=== PATIENT | female | born 1965 | race African-American/Black ===

== ENCOUNTER 2025-02-09 09:49 | Inpatient (IN) | payer MEDICAID, OTHER ==
[~2025-02-09] VITALS: Ht 180.3 cm; Wt 120.0 kg
[2025-02-09] VITALS (35 sets, daily range): BP systolic 147–205; BP diastolic 72–93; PULSE 75–126; RESP 9–19; TEMP 98.6–98.7; O2SAT 92–98
--- NOTE | 2025-02-09 10:27 | ED.PDOC ---
HPI Comments 59 y/o M, brought in by son presents to the ED for CC of hypertension. Per patient's son, patient began to become increasingly confusion and disoriented as of last night (02/09/24). Patient's son comments, symptoms worsened this morning with patient being unable to form sentences and speaking gibberish. Son endorses, checking patient's blood pressure prior to arrival and getting a hypertensive reading of 210/140mmHg. Per family, last known well is said to be 2200 last night (02/08/25). Upon arrival to the ED, code stroke called and patient transferred to ER bed 7 for further care. Time Seen by MD: 10:00 Primary Care Provider: DR CURRY Reviewed Notes: Nurses Notes, Medications, Allergies Allergies: Coded Allergies: NO KNOWN ALLERGIES (Unverified , 07/16/15) Information Source: Patient Mode of Arrival: Wheelchair Severity: Moderate Timing: Hours Duration: Since onset Prehospital treatment: None Onset: At Rest Cardiac Risk Factors: None PE Risk Factors: None History of: None Modifying Factors: Nothing Associated Signs and Symptoms: None Past Medical History PAST MEDICAL HISTORY: Denies Surgical History: Denies all surgeries OPTIMIZATION ENGINEER History: Denies all OPTIMIZATION ENGINEER Hx Family History Family History: Unknown Social History Smoker: Non-Smoker Alcohol: Denies ETOH Use Drugs: Denies Drug Use Lives In: Home All Other Systems: Reviewed and Negative ( PER HPI) Physical Exam General Appearance: Moderate Distress, Normal, Other (Tearful) HEENT: Normal ENT Inspection, Pharynx Normal Neck: Non-Tender, Normal, Normal Inspection, Other (Right-sided richie-neglect only looking to left side) Respiratory: Chest Non-Tender, Lungs Clear, No Accessory Muscle Use, No Respiratory Distress, Normal Breath Sounds Cardiovascular: No Edema, No Murmur, No Gallop, Normal Peripheral Pulses, Regular Rate/Rhythm Breast Exam: Deferred Gastrointestinal: No Organomegaly, Non Tender, No Pulsatile Mass, Normal Bowel Sounds, Soft Genitalia: Deferred Pelvic: Deferred Rectal: Deferred Extremities: No calf tenderness, Normal capillary refill, Normal inspection, Normal range of motion, Non-tender, No pedal edema Musculoskeletal : Apperance: Normal Neurologic: Alert, Aphasia, Other (Right-sided richie-neglect. Initially unable to follow commands. However symptoms waxing waning during examination. During examination she was able to at some point raise all extremities. Patient dysarthric. No facial droop no slurred speech.) Cerebellar Function: Normal Reflexes: Normal Skin: Dry, Normal Color, Warm Lymphatic: No Adenopathy EKG EKG : Comments SINUS RHYTHM RATE OF 80 WITH LEFT VENTRICULAR HYPERTROPHY. NO SIGNIFICANT ST CHANGES. Was a procedure done? Was a procedure done?: No CP Differential Dx Differential Diagnosis: Other (TIA/CVA) Differential Diagnosis: HTN Accelerated, HTN Encephalopathy X-Ray, Labs, Meds, VS Vital Signs Date Time Temp Pulse Resp B/P (MAP) Pulse Ox O2 Delivery O2 Flow Rate FiO2 02/09/25 14:01 80 11 193/88 (123) 96 02/09/25 13:48 204/100 02/09/25 12:01 76 11 189/95 (126) 95 02/09/25 11:22 76 15 187/78 (114) 96 02/09/25 10:54 75 14 97 Room Air* 0 21 02/09/25 10:52 97.9 79 13 212/101 (138) 96 97.9 02/09/25 10:37 80 02/09/25 09:51 97.9 83 16 194/121 (145) 98 97.9 Lab Test 02/09/25 13:17 02/09/25 11:18 02/09/25 10:25 02/09/25 10:09 Range/Units Troponin I High Sensitivity 9 8 9 </=34 ng/L White Blood Count 7.4 4.4-10.8 10^3/uL Red Blood Count 4.73 4.0-5.20 10^6/uL Hemoglobin 13.5 12.2-16.2 g/dL Hematocrit 40.3 36.0-46.0 % Mean Corpuscular Volume 85.1 80.0-100.0 fL Mean Corpuscular Hemoglobin 28.6 28.0-32.0 pg Mean Corpuscular Hemoglobin Concent 33.6 32.0-36.0 g/dL Red Cell Distribution Width 14.4 H 11.8-14.3 % Platelet Count 329 140-450 10^3/uL Mean Platelet Volume 7.7 6.9-10.8 fL Neutrophils (%) (Auto) 63.5 37.0-80.0 % Lymphocytes (%) (Auto) 28.5 10.0-50.0 % Monocytes (%) (Auto) 6.5 0.0-12.0 % Eosinophils (%) (Auto) 0.5 0.0-7.0 % Basophils (%) (Auto) 1.0 0.0-2.0 % Neutrophils # (Auto) 4.7 1.6-8.6 10 ^3/uL Lymphocytes # (Auto) 2.1 0.4-5.4 10 ^3/uL Monocytes # (Auto) 0.5 0-1.3 10 ^3/uL Eosinophils # (Auto) 0 0-0.8 10 ^3/uL Basophils # (Auto) 0.1 0-0.2 10 ^3/uL Nucleated Red Blood Cells 0.1 % Sodium Level 136 136-145 mmol/L Potassium Level 3.8 3.5-5.1 mmol/L Chloride Level 101 98-107 mmol/L Carbon Dioxide Level 29 20-31 mmol/L Anion Gap 6 5-15 Blood Urea Nitrogen 7 L 9-23 mg/dL Creatinine 0.79 0.550-1.02 mg/dL Glomerular Filtration Rate Calc 87 >90 mL/min BUN/Creatinine Ratio 8.9 L 10.0-20.0 Serum Glucose 291 H 74-106 mg/dL Hemoglobin A1c 13.7 H <5.7 % A1C Calcium Level 10.3 8.7-10.4 mg/dL Total Bilirubin 0.5 0.2-1.0 mg/dL Aspartate Amino Transferase (AST) 11 L 13-40 U/L Alanine Aminotransferase (ALT) 19 7-40 U/L Alkaline Phosphatase 120 H 46-116 U/L Total Protein 7.8 5.7-8.2 g/dL Albumin 4.6 3.2-4.8 g/dL Triglycerides Level 96 < 150 mg/dL Cholesterol Level 237 H < 200 mg/dL LDL Cholesterol 157 H < 100 mg/dL HDL Cholesterol 65 H 40-59 mg/dL POC Glucose 295 H 70-106 mg/dl Current Medications Medications (Trade) Dose Ordered Sig/Mai Route Start Time Stop Time Status Last Admin Ondansetron HCl (Zofran) 4 mg ONCE ONCE IV 02/09/25 10:45 02/09/25 10:46 DC 02/09/25 10:38 Hydralazine HCl (Apresoline Injection) 10 mg ONCE ONCE IV 02/09/25 13:45 02/09/25 13:46 DC 02/09/25 13:[address] [address] Ph: [phone] DIAGNOSTIC IMAGING Diagnostic Imaging Report : [id number] Signed PATIENT: HIRA GODOY ACCT: [id number] UNIT: [id number] : 1965 LOC: ER ROOM / BED: / AGE / SEX: 59 / F ADM STATUS: REG ER SERVICE 1014 ORDERING PHYSICIAN: SALUD MAJANO MD PROCEDURE(s): CTH - STROKE CTH REASON: CODE STROKE ORDER NUMBER(s): [id number], ACCESSION NUMBER(s): [id number] CT STROKE CTH INDICATION: CODE STROKE EXAM DATE: 02/09/2025 10:12 AM COMPARISON: None RADIATION DOSE: CTDIvol: 70.77 mGy, DLP: 1394.33 mGy*cm PROCEDURE: CT scans of the head were obtained from the vertex to the skull base. Sagittal and coronal reconstructions were provided. All CT scans at this medical facility are performed using dose modulation techniques as appropriate to a performed exam including the following: Automated exposure control was utilized; adjustment of the MA and/or KV according to patient size; and use of iterative reconstruction technique. FINDINGS: Hypodensity in the left parietal temporal lobe can be seen with an acute infarct. Old infarct in the left cerebellum. There is sulcal and ventricular prominence. The brain otherwise shows normal morphology and santos- white matter differentiation, without intracranial hemorrhage, extra-axial fluid collection, mass effect or acute large vessel infarct.The basal cisterns are patent. The skull and visible facial bones are intact. The paranasal sinuses, mastoid air cells and middle ear cavities are well-aerated. The soft tissues of the scalp are unremarkable. IMPRESSION: Hypodensity in the left parietal temporal lobe can be seen with an acute infarct. Old infarct in the left cerebellum and right basal ganglia. Critical Result: Infarct Findings discussed with Shine at 02/09/2025 10:39 AM and acknowledged receipt and understanding of the findings. ATED BY: RAYMOND MARMOLEJO MD DICTATED DATE/TIME: 02/09/251041 SIGNED BY: RAYMOND MARMOLEJO MD SIGNED DATE/TIME: 02/09/251041 CC: [place] [id number] Ph: [phone] DIAGNOSTIC IMAGING Diagnostic Imaging Report : [id number] Signed PATIENT: HIRA GODOY ACCT: [id number] UNIT: [id number] : 1965 LOC: ER ROOM / BED: / AGE / SEX: 59 / F ADM STATUS: REG ER SERVICE 1015 ORDERING PHYSICIAN: SALUD MAJANO MD PROCEDURE(s): CXR1 - CHEST XRAY 1 VIEW REASON: RO PNA ORDER NUMBER(s): [id number], ACCESSION NUMBER(s): [id number] CHEST RADIOGRAPH Indication: RO PNA Technique: Single frontal view of the chest was obtained Comparison: None FINDINGS: Lines and Tubes: None Lungs: No focal consolidation. Pleura: No effusion. No pneumothorax. Cardiomediastinal contours: Unremarkable Bones: No acute osseous abnormality. IMPRESSION: 1. No acute cardiopulmonary disease. ATED BY: JACKIE GODOY MD DICTATED DATE/TIME: 02/09/251041 SIGNED BY: JACKIE GODOY MD SIGNED DATE/TIME: 02/09/251041 CC: [place] [id number] Ph: [phone] DIAGNOSTIC IMAGING Diagnostic Imaging Report : [id number] Signed PATIENT: HIRA GODOY ACCT: [id number] UNIT: [id number] : 1965 LOC: ER ROOM / BED: / AGE / SEX: 59 / F ADM STATUS: REG ER SERVICE 1119 ORDERING PHYSICIAN: SALUD MAJANO MD PROCEDURE(s): [place] - ANGIO HEAD/Neck REASON: CVA ORDER NUMBER(s): [id number], ACCESSION NUMBER(s): [id number] Procedure: CT ANGIO HEAD/Neck HISTORY: CVA Comparison Study: CT head 02/09/2025 Exam Date:02/09/2025 11:25 AM TECHNIQUE: CTA head without and with intravenous contrast. CTA neck with intravenous contrast. 3D image postprocessing was performed and images were used for interpretation and reporting. 100 cc of Omnipaque 300 contrast was injected intravenously. All CT scans at this medical facility are performed using dose modulation techniques as appropriate to a performed exam including the following: Automated exposure control was utilized; adjustment of the MA and/or KV according to patient size; and use of iterative reconstruction technique. Radiation Dose : CT Dose: CTDI volume is 22 mGy. Dose-length product is 921 mGy*cm FINDINGS: CTA head: The intracranial internal carotid, anterior and middle cerebral arteries demonstrate normal caliber without hemodynamically significant stenosis or occlusion. The vertebral, basilar, and posterior cerebral arteries also demonstrate normal caliber without hemodynamically significant stenosis or occlusion. There is no evidence of intracranial arterial aneurysm or arteriovenous malformation. CTA neck: The visualized thoracic aortic arch and proximal great vessels are unremarkable. There are mild calcified atherosclerotic changes in the carotid bulbs. The bilateral common, internal and external carotid arteries are patent without hemodynamically significant stenosis. The cervical segments of the right and left vertebral arteries are patent without flow-limiting stenosis or obvious dissection.. There is no evidence of a soft tissue neck mass or pathologically enlarged cervical lymph nodes. There are thyroid nodules. IMPRESSION: 1. No hemodynamically significant stenosis, proximal occlusion or aneurysm in the intracranial arteries. 2. No hemodynamically significant stenosis in the cervical segments of the carotid and vertebral arteries. HS:Y ATED BY: WICHO PUENTES MD DICTATED DATE/TIME: 02/09/25 120 SIGNED BY: WICHO PUENTES MD SIGNED DATE/TIME: 02/09/25 120 CC: 59-year-old female presents here with confusion. Family initially brought her in as they noticed she was not speaking properly and noticed her blood pressure was high. I was immediately asked to see the patient by nursing staff. On my evaluation patient appear to have right-sided richie-neglect. She had dysarthria. Although she seemed to understand what I was telling her, she was not able to follow through with the commands. Her symptoms also seem to waxing and waning. As my initial assessment demonstrated right-sided richie-neglect but few minutes later during my conversation she was now able to see her right side and move extremities that she was not just a few minutes before. Stat CT scan of the brain was done on the patient. Which did demonstrate an acute temporal parietal ischemia. The findings were relayed to the neurologist Dr. Mercer. I spoke to her on the phone regarding patient's symptoms. She saw her on [facility]. She recommended a CT angio head and neck be performed stat to see if she would be a thrombectomy candidate. At this time CT angio head and neck does not demonstrate any embolism that would benefit from thrombectomy. Patient is not a tPA candidate as she is greater than the 4-1/2 hour window. She has a proximally 12 hours out from last seen normal. At this time blood work has been done which is largely unremarkable. She has been admitted to our hospital for further management of her acute stroke. Time of 1ST Reevaluation: 12:00 Reevaluation 1ST: Unchanged Patient Education/Counseling: Diagnosis, Treatment Family Education/Counseling: Diagnosis, Treatment Departure 1 Departure Time of Disposition: 15:11 Impression: Primary Impression: Acute stroke due to ischemia Disposition: ADMITTED INPATIENT Condition: Critical Critical Care Note Critical Care Time?: Yes (1 hr-critical care time only) Critical care comment: I was called into triage to see the patient immediately. Code stroke was called. Time was spent assessing the patient. Speak calling code strokes speaking to staff members. Speaking to a neurologist. Speaking to radiologist regarding initial CT results. Speaking here with neurologist multiple times and speaking to radiologist again about CT angio results. Concern for immediate neurological deterioration Stability Stability form required: No Heart Score Heart Score: Heart Score Response (Comments) Value History N/A 0 EKG N/A 0 Age N/A 0 Risk Factors N/A 0 Troponin N/A 0 Total 0 I personally scribed for SALUD MAJANO MD ([email or web address]) on 02/09/25 at 10:27. Electronically submitted by Leilani Ballesteros ([email or web address]). I personally scribed for SALUD MAJANO MD ([email or web address]) on 02/09/25 at 11:07. Electronically submitted by Leilani Ballesteros ([email or web address]). I personally scribed for SALUD MAJANO MD ([email or web address]) on 02/09/25 at 11:07. Electronically submitted by Leilani Ballesteros ([email or web address]). I personally scribed for SALUD MAJANO MD ([email or web address]) on 02/09/25 at 12:11. Electronically submitted by Leilani Ballesteros ([email or web address]). SALUD MAJANO MD Feb 09, 2025 10:27
[2025-02-09 10:37] LABS: Basophils # (auto) 0.1 10 ^3/uL (0-0.2); Eosinophils # (auto) 0 10 ^3/uL (0-0.8); Eosinophils % (auto) 0.5 % (0.0-7.0); Hematocrit 40.3 % (36.0-46.0); Hemoglobin 13.5 g/dL (12.2-16.2); Lymphocytes # (auto) 2.1 10 ^3/uL (0.4-5.4); Lymphocytes % (auto) 28.5 % (10.0-50.0); Mean Corpuscular Hemoglobin 28.6 pg (28.0-32.0); Mean Corpuscular Hgb Conc. 33.6 g/dL (32.0-36.0); Mean Corpuscular Volume 85.1 fL (80.0-100.0); Monocytes # (auto) 0.5 10 ^3/uL (0-1.3); Monocytes % (auto) 6.5 % (0.0-12.0); Neutrophils # (auto) 4.7 10 ^3/uL (1.6-8.6); Neutrophils % (auto) 63.5 % (37.0-80.0); Nucleated Red Blood Cells % 0.1 %; Platelet Count (auto) 329 10^3/uL (140-450); Red Blood Cells 4.73 10^6/uL (4.0-5.20); Red Cell Distribution Width 14.4 % (11.8-14.3); White Blood Cell 7.4 10^3/uL (4.4-10.8)
[2025-02-09] MEDS: ONDANSETRON HCL 4 MG/2 ML VIAL IV ONE (10:38)
[2025-02-09] MEDS: ONDANSETRON HCL 4 MG/2 ML VIAL ONE (10:39)
--- NOTE | 2025-02-09 10:44 | DVH ---
CT STROKE CTH INDICATION: CODE STROKE EXAM DATE: 02/09/2025 10:12 AM COMPARISON: None RADIATION DOSE: CTDIvol: 70.77 mGy, DLP: 1394.33 mGy*cm PROCEDURE: CT scans of the head were obtained from the vertex to the skull base. Sagittal and coronal reconstructions were provided. All CT scans at this medical facility are performed using dose modulation techniques as appropriate t o a performed exam including the following: Automated exposure control was utilized; adjustment of th e MA and/or KV according to patient size; and use of iterative reconstruction technique. FINDINGS: Hypodensity in the left parietal temporal lobe can be seen with an acute infarct. Old infar ct in the left cerebellum. There is sulcal and ventricular prominence. The brain otherwise shows nor mal morphology and santos-white matter differentiation, without intracranial hemorrhage, extra-axial fl uid collection, mass effect or acute large vessel infarct.The basal cisterns are patent. The skull an d visible facial bones are intact. The paranasal sinuses, mastoid air cells and middle ear cavities a re well-aerated. The soft tissues of the scalp are unremarkable. IMPRESSION: Hypodensity in the left parietal temporal lobe can be seen with an acute infarct. Old infarct in the left cerebellum and right basal ganglia. Critical Result: Infarct Findings discussed with Shine at 02/09/2025 10:39 AM and acknowledged receipt and understanding of the findings.
--- NOTE | 2025-02-09 10:44 | DVH ---
CHEST RADIOGRAPH Indication: RO PNA Technique: Single frontal view of the chest was obtained Comparison: None FINDINGS: Lines and Tubes: None Lungs: No focal consolidation. Pleura: No effusion. No pneumothorax. Cardiomediastinal contours: Unremarkable Bones: No acute osseous abnormality. IMPRESSION: 1. No acute cardiopulmonary disease.
[2025-02-09 10:57] LABS: Alanine Aminotransferase 19 U/L (7-40); Albumin 4.6 g/dL (3.2-4.8); Anion Gap 6 (5-15); BUN/Creatinine Ratio 8.9 (10.0-20.0); Bilirubin, Total 0.5 mg/dL (0.2-1.0); Calcium 10.3 mg/dL (8.7-10.4); Carbon Dioxide 29 mmol/L (20-31); Chloride 101 mmol/L (98-107); Potassium 3.8 mmol/L (3.5-5.1); Total Protein 7.8 g/dL (5.7-8.2)
[2025-02-09 10:58] LABS: Alkaline Phosphatase 120 U/L (46-116); Aspartate Aminotransferase 11 U/L (13-40); Blood Urea Nitrogen 7 mg/dL (9-23); Glucose 291 mg/dL (74-106); Sodium 136 mmol/L (136-145)
--- NOTE | 2025-02-09 11:28 | BSKYNEURO ---
[place] [facility] Note # Demographics Consult Type: Acute Stroke Level 2 (4.5-24 hrs) Patient Location: Emergency Room First Name: xochilt Last Name: bonifacio Date of : 1965 Age: 59 Gender: Female Facility: [facility] Time of Initial Page (): 02/09/2025 10:32 Time of Return Call (): 02/09/2025 10:32 # HPI Chief Complaint: - speech changes History: 59 yo F p/w confusion, talking gibberish and found high blood pressure with SBP>210. In the ER, she was found to have L gaze preference and R hemineglect. Last Known Normal: - I have collected independent history specific to time last normal or last known well. We have collaborated with the provider and at this time, we have the most current timeline with the information that is available. 10 pm last night # Scores Time of exam and NIHSS (): 02/09/2025 10:47 Level of Consciousness 1a: [0] = Alert; keenly responsive LOC Questions 1b: [2] = Answers neither correctly LOC Commands 1c: [1] = Performs one correctly Best Gaze 2: [1] = Partial gaze palsy Visual 3: [0] = No visual loss Facial Palsy 4: [1] = Minor paralysis Motor Arm Left 5a: [0] = No drift Motor Arm Right 5b: [0] = No drift Motor Leg Left 6a: [0] = No drift Motor Leg Right 6b: [0] = No drift Limb Ataxia 7: [0] = Absent Sensory 8: [0] = Normal Best Language 9: [2] = Severe aphasia Dysarthria 10: [0] = Normal Extinction and Inattention 11: [1] = Visual, tactile, auditory, spatial, or personal inattention NIHSS Total: 8 # ROS Additional: - complete review of systems otherwise negative Unable to obtain ROS: - non-verbal # PMH-FH-SH Past Medical History: - hypertension # Data Head CT: - preliminarily reviewed by me, please refer to radiology read for official reading L temporo-parietal acute infarct # Assessment Impression: - Ischemic Stroke (Acute) # Plan Thrombolytic/Intervention: Possible IA candidate Thrombolytic Exclusion: > 4.5 hours Possible IA Candidate: - CTA pending - If CTA shows large vessel occlusion, notify neurology and/or neuro- interventional team, per hospital protocol. Target Blood Pressure: - SBP < 220 - DBP < 120 Labs: - hemoglobin A1c - lipid panel - troponin Imaging: (urgency: STAT): - CT Angiogram Head and CT Angiogram Neck AND call back with results if abnormal Imaging: (urgency: routine): - MRI Brain without contrast Diagnostic Test: - echo without bubble study Therapy/Evaluation: - NPO until swallow evaluation - PT/OT evaluation - speech/swallow consultation Medication: - start statin with goal of LDL < 70 - aspirin 81 mg daily DVT Prophylaxis: - SCD - chemical DVT prophylaxis Other: - If patient has any neurological deterioration please call me back immediately - telemetry monitoring - LDL < 70 - permissive hypertension for 24-48 hr, then gradually bring down to normotension - will need event monitor or loop recorder as outpatient if atrial fibrillation not found as inpatient - neurology referral as outpatient - I have discussed my recommendations with the referring provider # Logistics Attestation of consult completion: The patient is located at: [facility]. Facility staff participated in the visit. I performed this telemedicine visit from my offsite office utilizing interactive 2 way audio and visual telecommunication technology. Total time spent in telemedicine encounter: I spent 23 minutes reviewing clinical data and/or imaging, obtaining history, examining the patient, communicating with the onsite care team, and in preparation of this report. # Demographics First Name: xochilt Last Name: bonifacio Facility: [facility] Electronically signed at 02/09/2025 11:28 ([place] Time) by Monica Mooney MD Yes MONICA MOONEY MD Feb 09, 2025 11:28
[2025-02-09] MEDS: IOHEXOL 350 MG/ML 100ML IJ ONE (11:45)
--- NOTE | 2025-02-09 12:09 | DVH ---
Procedure: CT ANGIO HEAD/Neck HISTORY: CVA Comparison Study: CT head 02/09/2025 Exam Date:02/09/2025 11:25 AM TECHNIQUE: CTA head without and with intravenous contrast. CTA neck with intravenous contrast. 3D [employer] postprocessing was performed and images were used for interpretation and reporting. 100 cc of Omni paque 300 contrast was injected intravenously. All CT scans at this medical facility are performed using dose modulation techniques as appropriate t o a performed exam including the following: Automated exposure control was utilized; adjustment of th e MA and/or KV according to patient size; and use of iterative reconstruction technique. Radiation Dose : CT Dose: CTDI volume is 22 mGy. Dose-length product is 921 mGy*cm FINDINGS: CTA head: The intracranial internal carotid, anterior and middle cerebral arteries demonstrate normal caliber w ithout hemodynamically significant stenosis or occlusion. The vertebral, basilar, and posterior cerebral arteries also demonstrate normal caliber without hemod ynamically significant stenosis or occlusion. There is no evidence of intracranial arterial aneurysm or arteriovenous malformation. CTA neck: The visualized thoracic aortic arch and proximal great vessels are unremarkable. There are mild calcified atherosclerotic changes in the carotid bulbs. The bilateral common, internal and external carotid arteries are patent without hemodynamically significant stenosis. The cervical segments of the right and left vertebral arteries are patent without flow-limiting steno sis or obvious dissection.. There is no evidence of a soft tissue neck mass or pathologically enlarged cervical lymph nodes. Ther e are thyroid nodules. IMPRESSION: 1. No hemodynamically significant stenosis, proximal occlusion or aneurysm in the intracranial arteri es. 2. No hemodynamically significant stenosis in the cervical segments of the carotid and vertebral delfin charo. HS:Y
[2025-02-09] MEDS: hydrALAZINE HCL 20 MG/ML VL IV ONE (13:48)
[2025-02-09] MEDS ORDERED: NITROGLYCERIN 0.4 MG SL TAB SL PRN (14:30)
[2025-02-09] MEDS ORDERED: DEXTROSE (50%) 50ML SYRG IV PRN (14:30)
[2025-02-09] MEDS ORDERED: ACETAMINOPHEN 325 MG TAB PO PRN (14:30)
[2025-02-09] MEDS: NICARDIPINE HCL IN SODIUM CHLO 200 ML IV SCH (14:32)
[2025-02-09] MEDS ORDERED: MORPHINE SULFATE 4 MG/ML SYR/VIAL IV PRN (14:45)
--- NOTE | 2025-02-09 14:50 | DVHHP2 ---
History of Present Illness Reason for Visit: Slurred speech History of Present Illness Marilyn Weller is a 59-year-old female with past medical history of hypertension and prediabetes who presents to the ED with confusion and slurred speech. Patient's son Damion is at the bedside. He states that his other brother had spoken to the mother last night around 10:00 p.m. and said that she was acting a bit different. Damion stated that this morning when he woke at 8:00 a.m. he went to go check on his mom and noticed that she had slurred speech and was very confused. Upon examination was asking patient questions regarding her name and date of she was able to tell me her 1st name but unable to tell me her last name as well as unable to tell me her full date of however was able to tell me the month that she was born. Also when asked the patient to lift up her right leg she moved her left arm. Per son he also reports that his mom was in the hospital in [place] in 2022 not sure for what hospitalization. Son also endorses that she smokes 1 pack of cigarettes per day, drinks o ccasionally, and uses marijuana but quit cocaine use. Patient denies any chest pain or shortness of breath. Per son he states that his mom walks steadily without any DMEs. Patient's son states that she has possibly prediabetic. Past Surgical History: None Family History: DM, Other (Mom with diabetes and Alzheimer's. Dad with Parkinson's.) Smoke: 1 pack per day ALCOHOL: occassional Drugs: Cocaine, Marijuana Lives: with Family Domestic Violence: Neg Review of Systems Neurological: Change in speech, Confusion Allergies: Coded Allergies: NO KNOWN ALLERGIES (Unverified , 07/16/15) Medications Current Medications Medications Dose Ordered Sig/Mai Route Start Time Stop Time Status Last Admin Dose Admin Nicardipine/ Sodium Chloride 200 ml @ 50 mls/hr Q4H IV 02/09/25 14:30 02/09/25 14:32 50 MLS/HR Exam Vital Signs Vital Signs Date Time Temp Pulse Resp B/P (MAP) Pulse Ox O2 Delivery O2 Flow Rate FiO2 02/09/25 14:32 203/79 02/09/25 11:22 76 15 96 02/09/25 10:54 Room Air* 0 21 02/09/25 10:52 97.9 97.9 General Appearance: Alert, Cooperative, No acute distress HEENT: Atraumatic, PERRLA, EOMI, Mucous membr. moist/pink Respiratory: Clear to auscultation, Normal air movement Cardiovascular: Regular rate, Normal S1, Normal S2, No murmurs Abdominal: Normal bowel sounds, Soft Extremities: No edema, Normal pulses Skin: No significant lesion Neuro: Normal speech, Normal tone, Sensation intact Psych/Mental Status: Mood NL Labs/Xrays Labs Test 02/09/25 13:17 02/09/25 10:25 02/09/25 10:09 Range/Units Troponin I High Sensitivity 9 </=34 ng/L White Blood Count 7.4 4.4-10.8 10^3/uL Red Blood Count 4.73 4.0-5.20 10^6/uL Hemoglobin 13.5 12.2-16.2 g/dL Hematocrit 40.3 36.0-46.0 % Mean Corpuscular Volume 85.1 80.0-100.0 fL Mean Corpuscular Hemoglobin 28.6 28.0-32.0 pg Mean Corpuscular Hemoglobin Concent 33.6 32.0-36.0 g/dL Red Cell Distribution Width 14.4 H 11.8-14.3 % Platelet Count 329 140-450 10^3/uL Mean Platelet Volume 7.7 6.9-10.8 fL Neutrophils (%) (Auto) 63.5 37.0-80.0 % Lymphocytes (%) (Auto) 28.5 10.0-50.0 % Monocytes (%) (Auto) 6.5 0.0-12.0 % Eosinophils (%) (Auto) 0.5 0.0-7.0 % Basophils (%) (Auto) 1.0 0.0-2.0 % Neutrophils # (Auto) 4.7 1.6-8.6 10 ^3/uL Lymphocytes # (Auto) 2.1 0.4-5.4 10 ^3/uL Monocytes # (Auto) 0.5 0-1.3 10 ^3/uL Eosinophils # (Auto) 0 0-0.8 10 ^3/uL Basophils # (Auto) 0.1 0-0.2 10 ^3/uL Nucleated Red Blood Cells 0.1 % Sodium Level 136 136-145 mmol/L Potassium Level 3.8 3.5-5.1 mmol/L Chloride Level 101 98-107 mmol/L Carbon Dioxide Level 29 20-31 mmol/L Anion Gap 6 5-15 Blood Urea Nitrogen 7 L 9-23 mg/dL Creatinine 0.79 0.550-1.02 mg/dL Glomerular Filtration Rate Calc 87 >90 mL/min BUN/Creatinine Ratio 8.9 L 10.0-20.0 Serum Glucose 291 H 74-106 mg/dL Calcium Level 10.3 8.7-10.4 mg/dL Total Bilirubin 0.5 0.2-1.0 mg/dL Aspartate Amino Transferase (AST) 11 L 13-40 U/L Alanine Aminotransferase (ALT) 19 7-40 U/L Alkaline Phosphatase 120 H 46-116 U/L Total Protein 7.8 5.7-8.2 g/dL Albumin 4.6 3.2-4.8 g/dL POC Glucose 295 H 70-106 mg/dl CT STROKE CTH INDICATION: CODE STROKE EXAM DATE: 02/09/2025 10:12 AM COMPARISON: None RADIATION DOSE: CTDIvol: 70.77 mGy, DLP: 1394.33 mGy*cm PROCEDURE: CT scans of the head were obtained from the vertex to the skull base. Sagittal and coronal reconstructions were provided. All CT scans at this medical facility are performed using dose modulation techniques as appropriate to a performed exam including the following: Automated exposure control was utilized; adjustment of the MA and/or KV according to patient size; and use of iterative reconstruction technique. FINDINGS: Hypodensity in the left parietal temporal lobe can be seen with an acute infarct. Old infarct in the left cerebellum. There is sulcal and ventricular prominence. The brain otherwise shows normal morphology and santos- white matter differentiation, without intracranial hemorrhage, extra-axial fluid collection, mass effect or acute large vessel infarct.The basal cisterns are patent. The skull and visible facial bones are intact. The paranasal sinuses, mastoid air cells and middle ear cavities are well-aerated. The soft tissues of the scalp are unremarkable. IMPRESSION: Hypodensity in the left parietal temporal lobe can be seen with an acute infarct. Old infarct in the left cerebellum and right basal ganglia. Critical Result: Infarct Procedure: CT ANGIO HEAD/Neck HISTORY: CVA Comparison Study: CT head 02/09/2025 Exam Date:02/09/2025 11:25 AM TECHNIQUE: CTA head without and with intravenous contrast. CTA neck with intravenous contrast. 3D image postprocessing was performed and images were used for interpretation and reporting. 100 cc of Omnipaque 300 contrast was injected intravenously. All CT scans at this medical facility are performed using dose modulation techniques as appropriate to a performed exam including the following: Automated exposure control was utilized; adjustment of the MA and/or KV according to patient size; and use of iterative reconstruction technique. Radiation Dose : CT Dose: CTDI volume is 22 mGy. Dose-length product is 921 mGy*cm FINDINGS: CTA head: The intracranial internal carotid, anterior and middle cerebral arteries demonstrate normal caliber without hemodynamically significant stenosis or occlusion. The vertebral, basilar, and posterior cerebral arteries also demonstrate normal caliber without hemodynamically significant stenosis or occlusion. There is no evidence of intracranial arterial aneurysm or arteriovenous malformation. CTA neck: The visualized thoracic aortic arch and proximal great vessels are unremarkable. There are mild calcified atherosclerotic changes in the carotid bulbs. The bilateral common, internal and external carotid arteries are patent without hemodynamically significant stenosis. The cervical segments of the right and left vertebral arteries are patent without flow-limiting stenosis or obvious dissection.. There is no evidence of a soft tissue neck mass or pathologically enlarged cervical lymph nodes. There are thyroid nodules. IMPRESSION: 1. No hemodynamically significant stenosis, proximal occlusion or aneurysm in the intracranial arteries. 2. No hemodynamically significant stenosis in the cervical segments of the ca rotid and vertebral arteries. CHEST RADIOGRAPH Indication: RO PNA Technique: Single frontal view of the chest was obtained Comparison: None FINDINGS: Lines and Tubes: None Lungs: No focal consolidation. Pleura: No effusion. No pneumothorax. Cardiomediastinal contours: Unremarkable Bones: No acute osseous abnormality. IMPRESSION: 1. No acute cardiopulmonary disease. 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 Aspirin + statin Antihypertensives NPO for now until speech clears Per patient and son no home medications that she takes DVT prophylaxis-SCDs PUD prophylaxis-not indicated history of GERD or GIB Discussed plan of care with patient, patient's son, and nurse Neurology consult Counseled patient on lifestyle modifications, diet, and exercise Counseled patient on cessation of alcohol, tobacco, marijuana, and cocaine abuse Plan discussed with: Patient, Son My Orders Orders - ADELIA TENORIO Alyssa EMPLOYEE RELATIONS ADMINISTRATOR Procedure Category Date Status Time Nicardipine Hcl In PHA 02/09/25 In Process Sodium Chlo (Cardene 14:30 Admit ADMIT 02/09/25 Transmitted 14:29 Code Status CODE 02/09/25 Transmitted 14:29 Npo (Nothing By DIET 02/09/25 Transmitted Mouth) Diet Dinner Edi Consultant NBA 02/09/25 In Process Strict Aspiration NBA 02/09/25 In Process Precautions Fall Precautions NBA 02/09/25 In Process Initiated Losartan Tablet PHA 02/10/25 Logged (Cozaar Tablet) 10:00 Carvedilol Tablet [facility] 02/09/25 Logged (Coreg Tablet) 22:00 Acetaminophen Tablet PHA 02/09/25 Logged (Tylenol Tablet) 14:30 Atorvastatin (Lipitor) PHA 02/09/25 Logged 22:00 Aspirin Tablet PHA 02/10/25 Logged 10:00 Education - Smoking [facility] 02/09/25 In Process Cessation Initiate Care Plan: [facility] 02/09/25 In Process Cva (Ische 14:29 Pt Eval 60min PT 02/09/25 Logged 14:29 St Eval Swallow Funct ST 02/09/25 Logged 45min 14:29 Troponin-I Hs LAB 02/09/25 Logged 14:29 Nitroglycerin PHA 02/09/25 Logged Sublingual (Ntrostat 14:30 Morphine Sulfate PHA 02/09/25 Logged Injection 14:30 Stat Ekg For Chest [facility] 02/09/25 In Process Pain 14:29 Notify Md Of Changes [facility] 02/09/25 In Process From Base 14:29 Loan Approver For [facility] 02/09/25 In Process 24 Hours 14:29 Emergency Dysrhythmia [facility] 02/09/25 In Process Protocol 14:29 Rhythm Strips Once [facility] 02/09/25 In Process Every Shift 14:29 Oxygen By Nasal RT 02/09/25 Transmitted Cannula 14:29 Glucose Blood [facility] 02/09/25 Logged (Accu-Chek Comfort 18:00 Insulin R (Human) PHA 02/09/25 Logged (Insulin R) 18:00 Dextrose 50% Syringe PHA 02/09/25 Logged 14:30 Hemoglobin A1c LAB 02/09/25 Logged 14:29 Sequential NBA 02/09/25 In Process Compression Device 14:29 Date of Service: Feb 09, 2025 Billing Provider: ADELIA TENORIO Common Visit Codes: [id number] INP/OBS CARE (HIGH) ADELIA TENORIO Feb 09, 2025 14:50
[2025-02-09 15:22] LABS: Triglycerides 96 mg/dL (< 150)
[2025-02-09 15:28] LABS: Cholesterol 237 mg/dL (< 200); HDL Cholesterol 65 mg/dL (40-59); LDL Cholesterol 157 mg/dL (< 100)
--- NOTE | 2025-02-09 18:04 | ECG ---
[facility] Test Date: 2025-02-09 Test Time: 10:37:24 Pat Name: HIRA GODOY Department: ED Room: [address] [place] [address] Gender: F Research Scientist: MARYCHUY : 1965 Requested By: SALUD MAJANO Order Number: [id number] Reading MD: Panda Ag Measurements Intervals [place] Rate: 80 P: 63 CT: 167 QRS: 31 QRSD: 115 T: 57 QT: 414 QTc: 478 Interpretive Statements Sinus rhythm Probable left atrial enlargement Left ventricular hypertrophy Electronically Signed On 02-14-2025 20:29:50 PDT by Panda Ag Please click the below link to view image of tracing.
[2025-02-09] MEDS: ACCU-CHEK COMFORT CURVE STRIP VI SCH (18:19)
[2025-02-09] MEDS: InsuLIN REG 1unit/0.01ml Soln (100units/ml) SC SCH (18:20)
[2025-02-09] MEDS: ONDANSETRON HCL 4 MG/2 ML VIAL IV PRN (20:37)
[2025-02-09] MEDS: ATORVASTATIN 20 MG TAB PO SCH (22:00)
[2025-02-09] MEDS: CARVEDILOL 3.125 MG TAB PO SCH (22:00)
[2025-02-10] VITALS (88 sets, daily range): BP systolic 81–192; BP diastolic 37–94; PULSE 82–129; RESP 10–21; TEMP 98.9; O2SAT 90–100
[2025-02-10 05:26] LABS: Basophils # (auto) 0 10 ^3/uL (0-0.2); Basophils % (auto) 0.6 % (0.0-2.0); Eosinophils # (auto) 0 10 ^3/uL (0-0.8); Eosinophils % (auto) 0.2 % (0.0-7.0); Hematocrit 39.9 % (36.0-46.0); Hemoglobin 13.8 g/dL (12.2-16.2); Lymphocytes # (auto) 1.7 10 ^3/uL (0.4-5.4); Lymphocytes % (auto) 21.1 % (10.0-50.0); Mean Corpuscular Hemoglobin 29.1 pg (28.0-32.0); Mean Corpuscular Hgb Conc. 34.6 g/dL (32.0-36.0); Mean Corpuscular Volume 84.1 fL (80.0-100.0); Monocytes # (auto) 0.6 10 ^3/uL (0-1.3); Neutrophils # (auto) 5.6 10 ^3/uL (1.6-8.6); Neutrophils % (auto) 71.1 % (37.0-80.0); Nucleated Red Blood Cells % 0.1 %; Platelet Count (auto) 287 10^3/uL (140-450); Red Blood Cells 4.74 10^6/uL (4.0-5.20); Red Cell Distribution Width 14.4 % (11.8-14.3); White Blood Cell 7.8 10^3/uL (4.4-10.8)
[2025-02-10 05:35] LABS: Anion Gap 8 (5-15); Carbon Dioxide 26 mmol/L (20-31); Chloride 105 mmol/L (98-107); Sodium 139 mmol/L (136-145)
[2025-02-10 05:37] LABS: Calcium 9.7 mg/dL (8.7-10.4)
[2025-02-10 05:42] LABS: BUN/Creatinine Ratio 8.8 (10.0-20.0); Blood Urea Nitrogen 6 mg/dL (9-23); Glucose 237 mg/dL (74-106); Potassium 3.5 mmol/L (3.5-5.1)
[2025-02-10] MEDS: ASPirin 81 mg TAB PO SCH (10:00)
[2025-02-10] MEDS: LOSARTAN POTASSIUM 25 MG TAB PO SCH (10:00)
[2025-02-10] MEDS: hydrALAZINE HCL 20 MG/ML VL IV ONE (10:49)
[2025-02-10] MEDS: niCARdipine 50 MG in SODIUM CHL 0.9% 230 ML IV SCH (11:00)
[2025-02-10] MEDS: MAGNESIUM SULFATE 1GM/100ML 100 ML IV SCH (13:23)
[2025-02-10] MEDS: hydrALAZINE HCL 20 MG/ML VL IV PRN (13:23)
--- NOTE | 2025-02-10 18:00 | DVHPN2 ---
Subjective I am assuming the care of the patient from today onwards. This is a follow up on acute CVA patient is currently denies any motor deficit slurred speech. MRI brain is pending Reviewed: Care Plan Changes from previous H/P or p: No Changes Objective Vitals Vital Signs Date Time Temp Pulse Resp B/P (MAP) Pulse Ox O2 Delivery O2 Flow Rate FiO2 02/10/25 16:00 14 95 Room Air* 0 21 02/10/25 16:00 99 02/10/25 15:25 178/82 02/10/25 04:00 98.9 98.9 Intake/Output Intake and Output 02/10/25 07:00 Intake Total 2250 ml Output Total 10 ml Balance 2240 ml Intake IV Total 2250 ml Output Emesis 10 ml # Voids 1 Exam HEENT pupils are reactive Neck is supple CV is S1-S2 regular rate and rhythm Respiratory bilateral clear GI positive bowel sound Extremity no pedal edema QUANTITATIVE RESEARCHER no motor deficit Medications Current Medications Medications Dose Ordered Sig/Mai Route Start Time Stop Time Status Last Admin Dose Admin Losartan Potassium 25 mg DAILY PO 02/10/25 10:00 Carvedilol 6.25 mg Q12HR PO 02/09/25 22:00 Acetaminophen 325 mg Q6HP PRN PO 02/09/25 14:30 Atorvastatin Calcium 40 mg HS PO 02/09/25 22:00 Aspirin 81 mg DAILY PO 02/10/25 10:00 Nitroglycerin 0.4 mg Q5MINP PRN SL 02/09/25 14:30 Morphine Sulfate 2 mg Q30M PRN IV 02/09/25 14:45 Diagnostic Test (Pha) 1 strip Q6HR 02/09/25 18:00 02/10/25 12:00 1 STRIP Insulin Human Regular Q6HR SC 02/09/25 18:00 02/10/25 12:00 6 UNITS Dextrose 50 ml UD PRN IV 02/09/25 14:30 Ondansetron HCl 4 mg Q4HPRN PRN IV 02/09/25 20:15 02/10/25 03:04 4 MG Nicardipine HCl 50 mg/Sodium Chloride 250 ml @ 25 mls/hr Q10H IV 02/10/25 11:00 02/10/25 15:25 75 MLS/HR Hydralazine HCl 10 mg Q4HP PRN IV 02/10/25 13:00 02/10/25 13:23 10 MG Laboratory Results Laboratory Tests 02/10/25 04:51 Chemistry Test 02/10/25 04:51 Calcium Level 9.7 mg/dL (8.7-10.4) Magnesium Level 1.5 mg/dL (1.6-2.6) L Assessment/Plan Assessment/Plan 89-year-old female with a known history of hypertension, chronic tobacco use disorder chronic alcoholism, chronic marijuana use previous history of cocaine use presented to the hospital with slurred speech and right-sided weakness found to have 1. Acute CVA with a left parietal and temporal lobe infarct 2. Dysarthria and slurred speech resolved 3. Hypertensive urgency currently on nicardipine drip 4. Chronic tobacco use disorder 5. Chronic alcoholism 6. Chronic marijuana use -aspirin, statin, MRI brain noncontrast, physical therapy evaluation and treatment Plan discussed with: Patient My Orders Orders - KENNY GODINEZ MD Procedure Category Date Status Time Hydralazine Injection PHA 02/10/25 In Process (Apresoline Inject 13:00 Date of Service: Feb 10, 2025 Billing Provider: KENNY GODINEZ MD Common Visit Codes: [id number] INP/OBS CARE(HIGH) KENNY GODINEZ MD Feb 10, 2025 18:00
--- NOTE | 2025-02-10 19:16 | DVHINCON2 ---
Date of service: Feb 10, [address] Valerio Reason for Consultation Stroke History of Present Illness Ms. Weller is a 59 years old right-handed female with a history of hypertension, obesity, possible heart attack, she was brought to the [facility] on for altered mental status. At this time, she is alert, oriented to person, place, not able to provide a good history though she has good social skills, and no speech difficulties. The history is obtained from her son, her nurse and chart review After he woke up in the morning on 02/09/2025, his son noticed the patient was confused, she could not express herself or was she talked about did not make sense, wound her son checked her, her blood pressure was 210/140. The patient has never had similar problems previously, and family decided to bring her to medical attention She has no history of strokes, but her son suspects she had heart attack previously. But she had no family doctor CBC, 02/09/2025: Unremarkable CMP, 02/09/2025: Unremarkable HGB A1c, 02/09/2025: 13.7 TG/HDL/LDL/HDL, 02/09/2025: 96/237/157/65 CT head, 02/09/2025: Hypodensity in the left parietal temporal lobe can be seen with an acute infarct. Old infarct in the left cerebellum and right basal ganglia CTA head, neck, 02/09/2025: 1. No hemodynamically significant stenosis, proximal occlusion or aneurysm in the intracranial arteries. 2. No hemodynamically significant stenosis in the cervical segments of the carotid and vertebral arteries Past Medical History Hypertension, obesity, possible heart attack. She snores sometimes Past Surgical History None Family History Hypertension, dementia Social History She smokes, she was a drug abuser, no history of alcohol abuse Allergies: Coded Allergies: NO KNOWN ALLERGIES (Unverified , 07/16/15) Current Medications Current Medications Medications (Trade) Dose Ordered Sig/Mai Route PRN Reason Start Time Stop Time Status Last Admin Losartan Potassium (Cozaar Tablet) 25 mg DAILY PO 02/10/25 10:00 Carvedilol (Coreg Tablet) 6.25 mg Q12HR PO 02/09/25 22:00 Atorvastatin Calcium (Lipitor) 40 mg HS PO 02/09/25 22:00 Aspirin 81 mg DAILY PO 02/10/25 10:00 Ondansetron HCl (Zofran) 4 mg Q4HPRN PRN IV NAUSEA / VOMITING 02/09/25 20:15 02/10/25 03:04 Nicardipine HCl 50 mg/Sodium Chloride 250 ml @ 25 mls/hr Q10H IV 02/10/25 11:00 02/10/25 18:32 Magnesium Sulfate/ Dextrose 100 ml @ 100 mls/hr Q1HR IV 02/10/25 13:00 02/10/25 15:59 DC 02/10/25 15:02 Hydralazine HCl (Apresoline Injection) 10 mg Q4HP PRN IV SBP>160 02/10/25 13:00 02/10/25 13:23 Review of Systems As above, the other systems are negative Vital Signs Vital Signs Date Time Temp Pulse Resp B/P (MAP) Pulse Ox O2 Delivery O2 Flow Rate FiO2 02/10/25 18:46 121 21 177/80 (112) 95 02/10/25 18:00 Room Air* 0 21 02/10/25 04:00 98.9 98.9 Physical Exam GENERAL EXAM: General: the patient is well developed and nourished. No acute distress. HEENT: Normocephalic, neck is supple, no carotid bruits. No mass. RESPIRATORY: Normal respiratory effort with symmetrical lung expansion. Lungs clear to auscultation. CARDIOVASCULAR: Regular rate and rhythm with no murmurs. S1, S2. ABDOMEN: Soft, nontender, normal bowel sound NEUROLOGICAL: MENTAL STATUS: Awake and alert. Oriented to person, placents SPEECH, LANGUAGE, HIGHER CORTICAL FUNCTION: no aphasia or dysathria. CRANIAL NERVES: #2: Intact visual jaimes to confrontation. The optic discs were sharp #3,4,6: Pupils are equal, round and reactive. EOMs full and conjugate. No nystagmus. #5: Facial sensation intact in all three divisions bilaterally. Mandibular strength intact. #7: Facial muscles symmetrical and strength intact. #8: Hearing grossly normal to voice. #9,10: Uvula and soft palate rise in the midline. Swallow and voice are normal. #11: Trapezius and sternomastoid strength intact bilaterally. #12: Tongue midline. No fasciculations or atrophy. SENSATION: Sensation to touch and pinprick is normal. MOTOR: Normal tone in the upper and lower extremity. Normal muscle bulk. No fasciculations. No abnormal movements or posturing. Muscle strength of the major groups in the extremities is 4/5. REFLEXES: Deep tendon reflexes are symmetrical. No pathological reflexes. CEREBELLAR/COORDINATION: Finger to nose is normal bilaterally. GAIT/STATION: deferred. Labs/Diagnostic Data Labs Test 02/10/25 18:23 02/10/25 04:51 02/09/25 13:17 02/09/25 10:25 Range/Units POC Glucose 325 H 70-106 mg/dl White Blood Count 7.8 4.4-10.8 10^3/uL Red Blood Count 4.74 4.0-5.20 10^6/uL Hemoglobin 13.8 12.2-16.2 g/dL Hematocrit 39.9 36.0-46.0 % Mean Corpuscular Volume 84.1 80.0-100.0 fL Mean Corpuscular Hemoglobin 29.1 28.0-32.0 pg Mean Corpuscular Hemoglobin Concent 34.6 32.0-36.0 g/dL Red Cell Distribution Width 14.4 H 11.8-14.3 % Platelet Count 287 140-450 10^3/uL Mean Platelet Volume 8.3 6.9-10.8 fL Neutrophils (%) (Auto) 71.1 37.0-80.0 % Lymphocytes (%) (Auto) 21.1 10.0-50.0 % Monocytes (%) (Auto) 7.0 0.0-12.0 % Eosinophils (%) (Auto) 0.2 0.0-7.0 % Basophils (%) (Auto) 0.6 0.0-2.0 % Neutrophils # (Auto) 5.6 1.6-8.6 10 ^3/uL Lymphocytes # (Auto) 1.7 0.4-5.4 10 ^3/uL Monocytes # (Auto) 0.6 0-1.3 10 ^3/uL Eosinophils # (Auto) 0 0-0.8 10 ^3/uL Basophils # (Auto) 0 0-0.2 10 ^3/uL Nucleated Red Blood Cells 0.1 % Sodium Level 139 136-145 mmol/L Potassium Level 3.5 3.5-5.1 mmol/L Chloride Level 105 98-107 mmol/L Carbon Dioxide Level 26 20-31 mmol/L Anion Gap 8 5-15 Blood Urea Nitrogen 6 L 9-23 mg/dL Creatinine 0.68 0.550-1.02 mg/dL Glomerular Filtration Rate Calc 101 >90 mL/min BUN/Creatinine Ratio 8.8 L 10.0-20.0 Serum Glucose 237 H 74-106 mg/dL Calcium Level 9.7 8.7-10.4 mg/dL Magnesium Level 1.5 L 1.6-2.6 mg/dL Troponin I High Sensitivity 9 </=34 ng/L Hemoglobin A1c 13.7 H <5.7 % A1C Total Bilirubin 0.5 0.2-1.0 mg/dL Aspartate Amino Transferase (AST) 11 L 13-40 U/L Alanine Aminotransferase (ALT) 19 7-40 U/L Alkaline Phosphatase 120 H 46-116 U/L Total Protein 7.8 5.7-8.2 g/dL Albumin 4.6 3.2-4.8 g/dL Triglycerides Level 96 < 150 mg/dL Cholesterol Level 237 H < 200 mg/dL LDL Cholesterol 157 H < 100 mg/dL HDL Cholesterol 65 H 40-59 mg/dL Assessment Hypertension emergency Altered mental status Hypertensive encephalopathy Acute on chronic strokes Acute stroke Chronic multiple strokes Obesity Multiple stroke risk factors Plan/Recommendation Monitoring Supportive treatment UDS ALBERTO MRI head ICU care Stabilize vitals Aspirin 81 mg daily Lipitor 40 mg daily DVT prophylaxis Quit tobacco smoking Weight control More recommendation per clinical course Condition: Critical Prognosis: Poor This medical document was created using an electronic medical record system with [employer] dictation system. Although this document has been carefully reviewed, there may still be some phonetic and typographical errors. These areas are purely typographical due to imperfections of the software programs, and do not reflect any compromise in the patient's medical care. Plan discussed with: Hans, Other KRISTA CHILDRESS MD Feb 10, 2025 19:16
[2025-02-10] MEDS ORDERED: LORazepam 2MG/ML-1ML VIAL IV PRN (20:00)
[2025-02-11] VITALS (98 sets, daily range): BP systolic 127–212; BP diastolic 62–85; PULSE 90–129; RESP 10–52; TEMP 98.2–98.8; O2SAT 94–99
[2025-02-11 04:11] LABS: Basophils # (auto) 0 10 ^3/uL (0-0.2); Basophils % (auto) 0.3 % (0.0-2.0); Eosinophils # (auto) 0.1 10 ^3/uL (0-0.8); Eosinophils % (auto) 0.7 % (0.0-7.0); Hematocrit 38.8 % (36.0-46.0); Hemoglobin 12.9 g/dL (12.2-16.2); Lymphocytes # (auto) 1.4 10 ^3/uL (0.4-5.4); Lymphocytes % (auto) 15.7 % (10.0-50.0); Mean Corpuscular Hemoglobin 28.5 pg (28.0-32.0); Mean Corpuscular Hgb Conc. 33.3 g/dL (32.0-36.0); Mean Corpuscular Volume 85.8 fL (80.0-100.0); Monocytes # (auto) 0.6 10 ^3/uL (0-1.3); Monocytes % (auto) 7.3 % (0.0-12.0); Neutrophils # (auto) 6.6 10 ^3/uL (1.6-8.6); Nucleated Red Blood Cells % 0.1 %; Platelet Count (auto) 315 10^3/uL (140-450); Red Blood Cells 4.52 10^6/uL (4.0-5.20); Red Cell Distribution Width 14.6 % (11.8-14.3); White Blood Cell 8.7 10^3/uL (4.4-10.8)
[2025-02-11 04:15] LABS: Chloride 107 mmol/L (98-107); Sodium 138 mmol/L (136-145)
[2025-02-11 04:16] LABS: Anion Gap 7 (5-15); Carbon Dioxide 24 mmol/L (20-31); Potassium 3.2 mmol/L (3.5-5.1)
[2025-02-11 04:17] LABS: Calcium 8.5 mg/dL (8.7-10.4)
[2025-02-11 04:23] LABS: BUN/Creatinine Ratio 8.5 (10.0-20.0); Blood Urea Nitrogen < 5 mg/dL (9-23); Glucose 221 mg/dL (74-106)
[2025-02-11] MEDS: POTASSIUM CHL 20MEQ/100ML 100 ML IV SCH (06:21)
--- NOTE | 2025-02-11 09:46 | DVHINCON2 ---
Date Seen: Feb 11, 2025 Referring Physician MD Jaleel Reason for Consultation Possible ALBERTO History of Present Illness This is a 59-year-old female patient who presents to the emergency room with chief complaint of altered level of mentation. At the time of assessment, the patient is A&O X3, with some periods of confusion. History of presenting illness obtained from patient's son, Damion. According to the patient's son, the patient appeared confused on the day of emergency room arrival. He became worried when his mother was not making sense of her words while speaking. He states that she was speaking "gibberish". He states he went to get his blood pressure cuff and took a manual blood pressure at home with the results reaching 210/137. He became immediately worried that she may be having a stroke so he proceeded to bring her to the emergency room for further evaluation. A head CT done in the emergency room revealed a hypodensity in the left parietal temporal lobe, seen with an acute infarct. An old infarct in the left cerebellum and ri ght basal ganglia were also noted. Cardiology has been consulted at this time for possible transesophageal echocardiogram to rule out cardiac etiology. Initial twelve lead electrocardiogram done in the emergency room reveals a normal sinus rhythm with left ventricular hypertrophy. Significant past medical history includes hypertension, previous CVA without residual deficit, tobacco use, and morbid obesity. Past Medical History Past medical history reviewed. No other significant than mentioned above. Past Surgical History Denies any previous surgeries Family History Family history reviewed. Social History Patient has a 16 pack-year history, smokes approximately half a pack per day Patient has a remote history of cocaine use last time about six months ago Denies any alcohol use Allergies: Coded Allergies: NO KNOWN ALLERGIES (Unverified , 07/16/15) Home Meds Denies taking any prescribed medications Current Medications Current Medications Medications (Trade) Dose Ordered Sig/Mai Route PRN Reason Start Time Stop Time Status Last Admin Losartan Potassium (Cozaar Tablet) 25 mg DAILY PO 02/10/25 10:00 Aspirin 81 mg DAILY PO 02/10/25 10:00 Nicardipine HCl 50 mg/Sodium Chloride 250 ml @ 25 mls/hr Q10H IV 02/10/25 11:00 02/11/25 08:12 Magnesium Sulfate/ Dextrose 100 ml @ 100 mls/hr Q1HR IV 02/10/25 13:00 02/10/25 15:59 DC 02/10/25 15:02 Hydralazine HCl (Apresoline Injection) 10 mg Q4HP PRN IV SBP>160 02/10/25 13:00 02/10/25 13:23 Lorazepam (Ativan Inj) 1 mg ONCE PRN IV MRI 02/10/25 20:00 Potassium Chloride 100 ml @ 50 mls/hr Q2H IV 02/11/25 06:00 02/11/25 09:59 02/11/25 08:20 Review of Systems Constitutional: No symptom reported Ears, Nose, & Throat: No symptom reported Eyes: No symptom reported Neurological: Slurred speech, confusion Pulmonary/Respiratory: No symptoms reported Cardiovascular: No symptom reported Gastrointestinal: No symptom reported Genitourinary: No symptom reported Musculoskeletal: No symptom reported Skin: No symptom reported Psychiatric: No symptom reported Endocrine: No symptom reported Hematologic/Lymphatic: No symptom reported Vital Signs Vital Signs Date Time Temp Pulse Resp B/P (MAP) Pulse Ox O2 Delivery O2 Flow Rate FiO2 02/11/25 09:00 100 13 160/76 (104) 99 02/11/25 08:00 Room Air* 0 21 02/11/25 08:00 98.5 98.5 Physical Exam General Appearance: Cooperative. Obese Pulmonary/Respiratory: Clear, bilateral breaths sounds. Cardiovascular/Chest: Regular rate and rhythm. Peripheral Pulses: 2+ Radial (R). 2+ Radial (L). 2+ Pedal (R). 2+ Pedal (L) Abdominal Exam: Normal bowel sounds. Ankle Exam: Negative ankle edema Lower extremities: Negative lower extremity edema Neuro/Mental Status: A/OX4, coherent. Thoughts/Psych: Normal thought pattern. Appropriate mood and affect. Good judgment and insight. Appearance: No acute distress. Skin Exam: Normal inspection. Normal color. Warm and dry. Labs/Diagnostic Data Labs Test 02/11/25 06:15 02/11/25 02:54 02/09/25 13:17 02/09/25 10:25 Range/Units POC Glucose 263 H 70-106 mg/dl White Blood Count 8.7 4.4-10.8 10^3/uL Red Blood Count 4.52 4.0-5.20 10^6/uL Hemoglobin 12.9 12.2-16.2 g/dL Hematocrit 38.8 36.0-46.0 % Mean Corpuscular Volume 85.8 80.0-100.0 fL Mean Corpuscular Hemoglobin 28.5 28.0-32.0 pg Mean Corpuscular Hemoglobin Concent 33.3 32.0-36.0 g/dL Red Cell Distribution Width 14.6 H 11.8-14.3 % Platelet Count 315 140-450 10^3/uL Mean Platelet Volume 7.8 6.9-10.8 fL Neutrophils (%) (Auto) 76.0 37.0-80.0 % Lymphocytes (%) (Auto) 15.7 10.0-50.0 % Monocytes (%) (Auto) 7.3 0.0-12.0 % Eosinophils (%) (Auto) 0.7 0.0-7.0 % Basophils (%) (Auto) 0.3 0.0-2.0 % Neutrophils # (Auto) 6.6 1.6-8.6 10 ^3/uL Lymphocytes # (Auto) 1.4 0.4-5.4 10 ^3/uL Monocytes # (Auto) 0.6 0-1.3 10 ^3/uL Eosinophils # (Auto) 0.1 0-0.8 10 ^3/uL Basophils # (Auto) 0 0-0.2 10 ^3/uL Nucleated Red Blood Cells 0.1 % Sodium Level 138 136-145 mmol/L Potassium Level 3.2 L 3.5-5.1 mmol/L Chloride Level 107 98-107 mmol/L Carbon Dioxide Level 24 20-31 mmol/L Anion Gap 7 5-15 Blood Urea Nitrogen < 5 L 9-23 mg/dL Creatinine 0.59 0.550-1.02 mg/dL Glomerular Filtration Rate Calc 104 >90 mL/min BUN/Creatinine Ratio 8.5 L 10.0-20.0 Serum Glucose 221 H 74-106 mg/dL Calcium Level 8.5 L 8.7-10.4 mg/dL Magnesium Level 2.0 1.6-2.6 mg/dL Troponin I High Sensitivity 9 </=34 ng/L Hemoglobin A1c 13.7 H <5.7 % A1C Total Bilirubin 0.5 0.2-1.0 mg/dL Aspartate Amino Transferase (AST) 11 L 13-40 U/L Alanine Aminotransferase (ALT) 19 7-40 U/L Alkaline Phosphatase 120 H 46-116 U/L Total Protein 7.8 5.7-8.2 g/dL Albumin 4.6 3.2-4.8 g/dL Triglycerides Level 96 < 150 mg/dL Cholesterol Level 237 H < 200 mg/dL LDL Cholesterol 157 H < 100 mg/dL HDL Cholesterol 65 H 40-59 mg/dL Assessment Acute CVA, rule out cardiac etiology Rule out cardiac arrhythmias Hypertensive emergency Dyslipidemia, newly diagnosed Type 2 diabetes mellitus, uncontrolled (Hgb A1c 13.7%), newly diagnosed Hypokalemia Hypomagnesemia, resolved Tobacco use Morbid obesity Plan/Recommendation We will continue with the following plan/recommendations (Dr. Puentes): * Transthoracic echocardiogram reveals EF 75% * Aggressive BP control; permissive hypertension per Neurology * Lipid-lowering agent and single antiplatelet therapy * Close Cardiac surveillance; monitor for any cardiac arrhythmias Patient seen and examined at bedside with . Transthoracic echocardiogram reveals EF 75% with normal valves. Given the patient's history of stroke and acute stroke, the patient may benefit from a transesophageal echocardiogram. Procedure was discussed with patient and patient's son, Damion in full detail. Given that the patient is confused, patient's son is agreeable to consent for the patient. We will tentatively schedule the patient for 02/12/2025. Thank you for allowing us to care for this patient. Please call with any questions or concerns. Critical care time spent: 44 minutes This medical document was created using an electronic medical record system with voice recognition software and computerized dictation system. Although this document has been carefully reviewed, there might still be some phonetic and typographical errors. Occasional wrong-word or ``sound-alike substitutions may have occurred due to the inherent limitations of voice recognition software. These areas are purely typographical due to imperfections of the software programs and do not reflect any compromise in the patient's medical care. Please read the chart carefully and recognize, using context, where these substitutions have occurred. Plan discussed with: Patient NYHA Physical activity limitations: NA Date of Service: Feb 11, 2025 Billing Provider: BETH WYATT Cardiology Common Codes: [id number] INP/OBS CARE (High) Cardiology Consultation Codes: [id number] CONSULT <45MIN BETH WYATT Feb 11, 2025 09:45
--- NOTE | 2025-02-11 13:32 | DVH ---
CLINICAL INDICATION: cva COMPARISON: CT dated 02/09/2025. TECHNIQUE: Multisequence multiplanar MRI images of the brain were obtained without contrast. FINDINGS: Acute infarct in the left temporo-occipital region measuring up to 8.4 cm in greatest dime nsion. No mass or midline shift. Scattered areas of T2/FLAIR hyperintense signal in the periventricul ar and subcortical white matter are nonspecific, but most likely sequelae of chronic small vessel isc hemic disease. Ventricles and sulci are within normal limits. Basal cisterns are patent. Cerebellum, brainstem, and midline structures are within normal limits. Mild mucosal thickening of the paranasal sinuses. Orbits are grossly unremarkable. IMPRESSION: 1. Acute infarct in the left temporo-occipital region. 2. Additional nonacute findings as detailed above.
[2025-02-11 14:04] LABS: Urine Bacteria None Seen /hpf (None Seen)
[2025-02-11 14:14] LABS: Urine Blood Negative /uL (Negative); Urine Clarity Clear (Clear); Urine Color Light-Yellow (Yellow); Urine Mucus FEW (None Seen); Urine Protein, UAD Negative (Negative); Urine Specific Gravity 1.015 (1.001-1.035); Urine Squamous Epithelial Cell FEW /hpf (<5); Urine Urobilinogen Normal (Negative); Urine WBC 1 /HPF (0-5); Urine pH 5.5 (5.0-9.0)
[2025-02-11 14:21] LABS: Amphetamine Screen, Urine Neg (NEGATIVE); Barbiturate Scree,Urine Neg (NEGATIVE); Benzodiazephine Screen, Urine Neg (NEGATIVE); Cannabinoid Screen, Urine Pos (NEGATIVE); Cocaine Screen, Urine Neg (NEGATIVE); Opiate Scree,Urine Neg (NEGATIVE); Phencyclidine Screen, Urine Neg (NEGATIVE)
--- NOTE | 2025-02-11 15:27 | DVHPN2 ---
Progress Note - Dictate Date Seen: Feb 11, 2025 Medical Necessity Reason Pt with a Central, PICC or Fol: No Subjective Ms. Weller is a 59 years old right-handed female with a history of hypertension, obesity, possible heart attack, she was brought to the [facility] on for altered mental status. I have seen and examined the patient, I have discussed with her nurse, her son in the room with her. She is alert, oriented to person, place, she knows year and the month, she may have mild global aphasia UDS, 02/11/2025: Cannabinoids CBC, 02/09/2025: Unremarkable CMP, 02/09/2025: Unremarkable HGB A1c, 02/09/2025: 13.7 TG/HDL/LDL/HDL, 02/09/2025: 96/237/157/65 Echocardiogram, 02/11/2025: MILD LVH AND MILD LV DIASTOLIC DYSFUNCTION LV EF IS 75% AND IS NORMAL NORMAL VALVES NO EFFUSION CT head, 02/09/2025: Hypodensity in the left parietal temporal lobe can be seen with an acute infarct. Old infarct in the left cerebellum and right basal ganglia CTA head, neck, 02/09/2025: 1. No hemodynamically significant stenosis, proximal occlusion or aneurysm in the intracranial arteries. 2. No hemodynamically significant stenosis in the cervical segments of the carotid and vertebral arteries MR head, 02/11/2025: 1. Acute infarct in the left temporo-occipital region. 2. Additional nonacute findings as detailed above (I saw evidence suggestive of bilateral basal ganglia region lacunar strokes) vital signs Vital Sign Date Time Temp Pulse Resp B/P (MAP) Pulse Ox O2 Delivery O2 Flow Rate FiO2 02/11/25 15:00 111 23 172/79 (110) 97 02/11/25 14:00 Room Air* 0 21 02/11/25 12:00 98.8 98.8 Total Intake and Output 02/10/25 02/10/25 02/11/25 15:00 23:00 07:00 Intake Total 850 ml 810 ml 550 ml Output Total 0 ml 1000 ml Balance 850 ml 810 ml -450 ml medications Current Medications Medications Dose Ordered Sig/Mai Route Start Time Stop Time Status Last Admin Dose Admin Losartan Potassium 25 mg DAILY PO 02/10/25 10:00 Carvedilol 6.25 mg Q12HR PO 02/09/25 22:00 Acetaminophen 325 mg Q6HP PRN PO 02/09/25 14:30 Atorvastatin Calcium 40 mg HS PO 02/09/25 22:00 Aspirin 81 mg DAILY PO 02/10/25 10:00 02/11/25 14:54 81 MG Nitroglycerin 0.4 mg Q5MINP PRN SL 02/09/25 14:30 Morphine Sulfate 2 mg Q30M PRN IV 02/09/25 14:45 Diagnostic Test (Pha) 1 strip Q6HR 02/09/25 18:00 02/11/25 12:34 1 STRIP Insulin Human Regular Q6HR SC 02/09/25 18:00 02/11/25 12:36 4 UNITS Dextrose 50 ml UD PRN IV 02/09/25 14:30 Ondansetron HCl 4 mg Q4HPRN PRN IV 02/09/25 20:15 02/10/25 03:04 4 MG Nicardipine HCl 50 mg/Sodium Chloride 250 ml @ 25 mls/hr Q10H IV 02/10/25 11:00 02/11/25 08:12 50 MLS/HR Hydralazine HCl 10 mg Q4HP PRN IV 02/10/25 13:00 02/10/25 13:23 10 MG Lorazepam 1 mg ONCE PRN IV 02/10/25 20:00 objective General: the patient is well developed and nourished. No acute distress. MENTAL STATUS: Subjective SPEECH, LANGUAGE, HIGHER CORTICAL FUNCTION: no aphasia or dysathria. CRANIAL NERVES: Pupils are equal, round and reactive. EOMs full and conjugate. No nystagmus. Facial sensation intact in all three divisions bilaterally. Mandibular strength intact. Facial muscles symmetrical and strength intact. SENSATION: Sensation to touch and pinprick is normal. MOTOR: Normal tone in the upper and lower extremity. Normal muscle bulk. No fasciculations. No abnormal movements or posturing. Muscle strength of the major groups in the extremities is > 4/5. REFLEXES: Deep tendon reflexes are symmetrical. No pathological reflexes. CEREBELLAR/COORDINATION: Finger to nose is normal bilaterally. GAIT/STATION: deferred. laboratory and microbiology Laboratory Tests 02/11/25 02:54 Test 02/11/25 02:54 Range/Units Serum Glucose 221 H 74-106 mg/dL Problem List Hypertension emergency Altered mental status Hypertensive encephalopathy Acute on chronic strokes ? Global aphasia Acute stroke Chronic multiple strokes Obesity Multiple stroke risk factors Assessment/Plan Monitoring Supportive treatment ALBERTO ICU care Stabilize vitals Aspirin 81 mg daily Lipitor 40 mg daily DVT prophylaxis Quit tobacco smoking Weight control Speech pathology Re: ? Aphasia More recommendation per clinical course This medical document was created using an electronic medical record system with ReplySend dictation system. Although this document has been carefully reviewed, there may still be some phonetic and typographical errors. These areas are purely typographical due to imperfections of the software programs, and do not reflect any compromise in the patient's medical care. Prognosis poor Dietary Evaluation Review Recommendations by RD: Dietary education by RD Comments: 1) If patient remains NPO > 7 days, consider EN/TPN to meet at least 75% of estimated daily needs 2) Advance to 60g CCHO 2g Na diet when medically feasible, pending ST approval 3) Refer to outpatient RD/CDCES for diabetes education and weight management 4) Educate on the importance of SMBG. Consider continuous glucose monitor if patient d/c with insulin regimen 5) Follow-up with neurology and cardiology 6) Follow-up with physical therapy Expected Outcomes/Goals: 1) patient to receive nutrition support within 7 days of NPO status 2) labs to improve 3) diet to advance 4) f/u in 2-3 days Plan discussed with: Son, Other Critical Care Time(min): 35 KRISTA CHILDRESS MD Feb 11, 2025 15:27
--- NOTE | 2025-02-11 15:29 | DVHSR ---
APPROVED REPORT EXAM: LIMITED Two-dimensional and M-mode echocardiogram with Doppler and color Doppler. Blood Pressure: 152/71 mmHg INDICATION Evaluate Cardiac Function RISK FACTORS Obesity: Height: 5' 11", Weight: 264 DIMENSIONS LVDd4.7 (3.8-5.7cm)LA (2D)4.0 (1.9-4.0cm)Aortic Root3.6 (2.0-3.7cm) LVDs2.6 (2.5-4.0cm)LA (MM) (1.9-4.0cm)Aortic Cusp Exc1.8 (1.5-2.0cm) EF (%) 75.0 (55-70%)Rt. Atrium3.5 (1.9-4.0cm)Asc. Aorta cm IVSd1.9 (0.7-1.1cm)RV (D) (1.8-2.4cm) PWd2.1 (0.7-1.1cm) Mitral Valve MitralMitral Stenosis E wave1.00m/sMV Mean GR.mmHg A wave1.20m/sMV Peak GR.mmHg E/A ratio0.82D MVAcm2 Aortic Valve Aortic ValveAortic Stenosis V11.50m/Saurav Mean GR.10mmHg V22.00m/Saurav Peak GR.17mmHg LVOT Diameter2.3 (1.8-2.4cm)Doppler AVA3.11cm2 Pulmonic Valve V21.00m/s Other Information Quality : Technically LimitedRhythm : Technically limited study due to body habitus. Conclusion MILD LVH AND MILD LV DIASTOLIC DYSFUNCTION LV EF IS 75% AND IS NORMAL NORMAL VALVES NO EFFUSION
--- NOTE | 2025-02-11 17:13 | DVHPN2 ---
Subjective This is a follow up on acute CVA patient is currently denies any motor deficit slurred speech. MRI brain showed acute evidence of infarct in tempo extubated region. Patient is currently denies any motor deficit or slurred speech. Reviewed: Care Plan Changes from previous H/P or p: No Changes Objective Vitals Vital Signs Date Time Temp Pulse Resp B/P (MAP) Pulse Ox O2 Delivery O2 Flow Rate FiO2 02/11/25 16:49 103 151/71 02/11/25 16:00 15 97 Room Air* 0 21 02/11/25 12:00 98.8 98.8 Intake/Output Intake and Output 02/11/25 07:00 Intake Total 2210 ml Output Total 1000 ml Balance 1210 ml Intake Oral 20 ml IV Total 2190 ml Output Urine Total 1000 ml Stool Total 0 ml Exam HEENT pupils are reactive Neck is supple CV is S1-S2 regular rate and rhythm Respiratory bilateral clear GI positive bowel sound Extremity no pedal edema [employer]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 motor deficit Medications Current Medications Medications Dose Ordered Sig/Mai Route Start Time Stop Time Status Last Admin Dose Admin Losartan Potassium 25 mg DAILY PO 02/10/25 10:00 Carvedilol 6.25 mg Q12HR PO 02/09/25 22:00 Acetaminophen 325 mg Q6HP PRN PO 02/09/25 14:30 Atorvastatin Calcium 40 mg HS PO 02/09/25 22:00 Aspirin 81 mg DAILY PO 02/10/25 10:00 02/11/25 14:54 81 MG Nitroglycerin 0.4 mg Q5MINP PRN SL 02/09/25 14:30 Morphine Sulfate 2 mg Q30M PRN IV 02/09/25 14:45 Diagnostic Test (Pha) 1 strip Q6HR 02/09/25 18:00 02/11/25 12:34 1 STRIP Insulin Human Regular Q6HR SC 02/09/25 18:00 02/11/25 12:36 4 UNITS Dextrose 50 ml UD PRN IV 02/09/25 14:30 Ondansetron HCl 4 mg Q4HPRN PRN IV 02/09/25 20:15 02/10/25 03:04 4 MG Nicardipine HCl 50 mg/Sodium Chloride 250 ml @ 25 mls/hr Q10H IV 02/10/25 11:00 02/11/25 16:49 25 MLS/HR Hydralazine HCl 10 mg Q4HP PRN IV 02/10/25 13:00 02/10/25 13:23 10 MG Lorazepam 1 mg ONCE PRN IV 02/10/25 20:00 Laboratory Results Laboratory Tests 02/11/25 02:54 Chemistry Test 02/11/25 02:54 Calcium Level 8.5 mg/dL (8.7-10.4) L Magnesium Level 2.0 mg/dL (1.6-2.6) HgA1c, TSH Test 02/11/25 02:54 Thyroid Stimulating Hormone (TSH) 2.45 uIU/mL (0.55-4.78) Urinalysis Test 02/11/25 13:33 Urine Color Light-yellow (Yellow) Urine Clarity Clear (Clear) Urine pH 5.5 (5.0-9.0) Urine Specific [place] 1.015 (1.001-1.035) Urine Protein Negative (Negative) Urine Ketones 2+ (Negative) H Urine Blood Negative /uL (Negative) Urine Nitrite Negative (Negative) Urine Bilirubin Negative (Negative) Urine Urobilinogen Normal mg/dL (Negative) Urine Leukocyte Esterase Negative /uL (Negative) Urine RBC 1 /hpf (0 - 4) Urine Microscopic WBC 1 /HPF (0-5) Urine Squamous Epithelial Cells Few /hpf (<5) Urine Bacteria None seen /hpf (None Seen) Urine Mucus Few (None Seen) Urine Glucose 4+ mg/dL (Normal) H Microbiology Microbiology Date/Time Source Procedure Growth Status 02/10/25 18:40 Nose MRSA Screen - Final Complete Assessment/Plan Assessment/Plan 89-year-old female with a known history of hypertension, chronic tobacco use disorder chronic alcoholism, chronic marijuana use previous history of cocaine use presented to the hospital with slurred speech and right-sided weakness found to have 1. 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 Dysarthria and slurred speech resolved 3. Hypertensive urgency currently on nicardipine drip 4. Chronic tobacco use disorder 5. Chronic alcoholism 6. Chronic marijuana use -aspirin, statin, neurology consultation and follow up -ALBERTO by Cardiology. Plan discussed with: Patient, Other My Orders Orders - KENNY GODINEZ MD Procedure Category Date Status Time Communication Order ORDERS 02/10/25 Transmitted 18:50 * Wound Consult CONS 02/11/25 Transmitted 07:00 Consistent DIET 6/8/25 Transmitted Carb(Ccho)Diabetes Dinner Apply Z-Guard NBA 02/11/25 In Process 12:10 Date of Service: Feb 11, 2025 Billing Provider: KENNY GODINEZ MD Common Visit Codes: [id number] INP/OBS CARE(MOD) KENNY GODINEZ MD Feb 11, 2025 17:13
--- NOTE | 2025-02-11 20:05 | DVHINCON2 ---
Date of service: Feb 11, 2025 Referring Physician Dara Valerio NP Reason for Consultation Hypertensive urgency History of Present Illness A 59-year-old woman with past medical history of hypertension, previous CVA without residual deficit, tobacco use, cocaine use and prediabetes who presented to ED on 02/09/25 with confusion and slurred speech. According to the patient's son, she appeared confused on the day of presentation. He noted that patient was not making sense of her words, speaking "gibberish". He measured her blood pressure at that time and it was 210/137. Patient was thus brought in to ED for further evaluation. She denied any chest pain, shortness of breath, or other acute complaints. Head CT done in ED revealed a hypodensity in the left parietal temporal lobe, as seen with an acute infarct. An old infarct in the left cerebellum and right basal ganglia were also noted. Patient was admitted for further care, and pulmonary consultation is requested for evaluation and management due to the above findings. Review of Systems: 14-point review of systems negative unless otherwise noted above. Past Medical History: Hypertension, previous CVA without residual deficit, tobacco use, cocaine use and prediabetes Past Surgical History: None Medications: Reviewed. Allergies: No known drug allergies. Family History: Mom with diabetes and Alzheimer's. Dad with Parkinson's. Social History: Smoker. Smokes 1 pack per day Occasional alcohol use. Drug use: Positive for Cocaine, Marijuana. Allergies: Coded Allergies: NO KNOWN ALLERGIES (Unverified , 07/16/15) Current Medications Current Medications Medications (Trade) Dose Ordered Sig/Mai Route PRN Reason Start Time Stop Time Status Last Admin Potassium Chloride 100 ml @ 50 mls/hr Q2H IV 02/11/25 06:00 02/11/25 09:59 DC 02/11/25 08:20 Vital Signs Vital Signs Date Time Temp Pulse Resp B/P (MAP) Pulse Ox O2 Delivery O2 Flow Rate FiO2 02/11/25 19:30 107 24 169/79 (109) 96 02/11/25 18:00 Room Air* 0 21 02/11/25 12:00 98.8 98.8 Physical Exam Gen.: Patient lying in bed in no apparent distress. Breathing on room air. Head: Normocephalic, atraumatic. Eyes: EOMI/PERRLA. Ears: Normal hearing. Normal anatomy. Neck/trachea: Trachea midline, supple. Nose: Normal external anatomy. Mouth: Moist mucous membranes. Chest: Decreased air entry bilaterally. No wheezing or rhonchi. Cardiovascular: Positive S1, positive S2. Regular rate and rhythm. Abdomen: Positive bowel sounds in all 4 quadrants. Soft, non-tender, non- distended. : Deferred. Rectal: Deferred. Skin: Warm, dry. Intact. Extremities: 2+ radial pulses bilaterally. No lower extremity edema. Neuro: Awake, alert, confused. Slurred speech. No gross motor or sensory deficits. Cranial nerves II through XII intact. Gait not assessed. Labs/Diagnostic Data Labs Test 02/11/25 17:53 02/11/25 13:33 02/11/25 02:54 02/09/25 13:17 Range/Units POC Glucose 238 H 70-106 mg/dl Urine Color Light-yellow Yellow Urine Clarity Clear Clear Urine pH 5.5 5.0-9.0 Urine Specific [place] 1.015 1.001-1.035 Urine Protein Negative Negative Urine Ketones 2+ H Negative Urine Blood Negative Negative /uL Urine Nitrite Negative Negative Urine Bilirubin Negative Negative Urine Urobilinogen Normal Negative mg/dL Urine Leukocyte Esterase Negative Negative /uL Urine RBC 1 0 - 4 /hpf Urine Microscopic WBC 1 0-5 /HPF Urine Squamous Epithelial Cells Few <5 /hpf Urine Bacteria None seen None Seen /hpf Urine Mucus Few None Seen Urine Glucose 4+ H Normal mg/dL Urine Opiates Screen Neg NEGATIVE Urine Fentanyl Screen Neg NEGATIVE Urine Barbiturates Screen Neg NEGATIVE Urine Phencyclidine Screen Neg NEGATIVE Urine Amphetamines Screen Neg NEGATIVE Urine Benzodiazepines Screen Neg NEGATIVE Urine Cocaine Screen Neg NEGATIVE Urine Cannabinoids Screen Pos NEGATIVE White Blood Count 8.7 4.4-10.8 10^3/uL Red Blood Count 4.52 4.0-5.20 10^6/uL Hemoglobin 12.9 12.2-16.2 g/dL Hematocrit 38.8 36.0-46.0 % Mean Corpuscular Volume 85.8 80.0-100.0 fL Mean Corpuscular Hemoglobin 28.5 28.0-32.0 pg Mean Corpuscular Hemoglobin Concent 33.3 32.0-36.0 g/dL Red Cell Distribution Width 14.6 H 11.8-14.3 % Platelet Count 315 140-450 10^3/uL Mean Platelet Volume 7.8 6.9-10.8 fL Neutrophils (%) (Auto) 76.0 37.0-80.0 % Lymphocytes (%) (Auto) 15.7 10.0-50.0 % Monocytes (%) (Auto) 7.3 0.0-12.0 % Eosinophils (%) (Auto) 0.7 0.0-7.0 % Basophils (%) (Auto) 0.3 0.0-2.0 % Neutrophils # (Auto) 6.6 1.6-8.6 10 ^3/uL Lymphocytes # (Auto) 1.4 0.4-5.4 10 ^3/uL Monocytes # (Auto) 0.6 0-1.3 10 ^3/uL Eosinophils # (Auto) 0.1 0-0.8 10 ^3/uL Basophils # (Auto) 0 0-0.2 10 ^3/uL Nucleated Red Blood Cells 0.1 % Sodium Level 138 136-145 mmol/L Potassium Level 3.2 L 3.5-5.1 mmol/L Chloride Level 107 98-107 mmol/L Carbon Dioxide Level 24 20-31 mmol/L Anion Gap 7 5-15 Blood Urea Nitrogen < 5 L 9-23 mg/dL Creatinine 0.59 0.550-1.02 mg/dL Glomerular Filtration Rate Calc 104 >90 mL/min BUN/Creatinine Ratio 8.5 L 10.0-20.0 Serum Glucose 221 H 74-106 mg/dL Calcium Level 8.5 L 8.7-10.4 mg/dL Magnesium Level 2.0 1.6-2.6 mg/dL Thyroid Stimulating Hormone (TSH) 2.45 0.55-4.78 uIU/mL Troponin I High Sensitivity 9 </=34 ng/L Test 02/09/25 10:25 Range/Units Hemoglobin A1c 13.7 H <5.7 % A1C Total Bilirubin 0.5 0.2-1.0 mg/dL Aspartate Amino Transferase (AST) 11 L 13-40 U/L Alanine Aminotransferase (ALT) 19 7-40 U/L Alkaline Phosphatase 120 H 46-116 U/L Total Protein 7.8 5.7-8.2 g/dL Albumin 4.6 3.2-4.8 g/dL Triglycerides Level 96 < 150 mg/dL Cholesterol Level 237 H < 200 mg/dL LDL Cholesterol 157 H < 100 mg/dL HDL Cholesterol 65 H 40-59 mg/dL Microbiology Date/Time Source Procedure Growth Status 02/10/25 18:40 Nose MRSA Screen - Final Complete Assessment Impression: Cerebrovascular accident Hypertensive urgency Rule out intracranial hemorrhage Nicotine dependence Hx of cocaine use Obesity Plan: On room air Supplemental oxygen PRN Titrate to keep O2 sats above 92%. Nicardipine drip for blood pressure control. Follow up brain MRI results CT head on 02/09/25 revealed hypodensity in the left parietal temporal lobe, can be seen with an acute infarct. Old infarct in the left cerebellum and right basal ganglia. Follow up Neurology recommendations Chest x-ray on 02/09/25 showed no acute cardiopulmonary disease. Follow up Echocardiogram Follow up Cardiology recs Accu-Cheks, ISS. Monitor renal function. Monitor electrolytes. Supplement as necessary. Potassium supplementation Monitor ins and outs. Diet and lifestyle modifications for weight reduction Obesity - complicates all care DVT prophylaxis. Prognosis: Poor given patient's multiple co-morbidities. Rest of plan per hospitalist and other consultants. Thank you, IMAN Valerio, for allowing me to participate in this patient's care. Further recommendations will depend on the patient's clinical course. Please do not hesitate to contact me if you have any questions or concerns. This medical document was created using an electronic medical record system with [employer] dictation system. Although these documentations are being carefully reviewed, there may still be some phonetic and typographical changes. The errors are purely typographical, due to imperfection on the software program, and do not reflect any compromise in the patient's medical care. Plan discussed with: Other (RN/IMAN Valerio/) CAIO HERNANDEZ MD Feb 11, 2025 20:05
--- NOTE | 2025-02-11 23:44 | DVHINCON2 ---
Date Seen: Feb 11, 2025 Referring Physician MD Jaleel Reason for Consultation Possible ALBERTO History of Present Illness This is a 59-year-old female with a past medical history of hypertension, previous CVA without residual deficit, tobacco use, and morbid obesity who presents to the emergency room with a complaint of altered level of mentation. At the time of assessment, the patient is A&O X3, with some periods of confusion . History of presenting illness obtained from patient's son, Damion who's present at bedside. According to the patient's son, the patient appeared confused on the day of emergency room arrival. He became worried when his mother was not making sense of her words while speaking. He states that she was speaking "gibberish". He states he went to get his blood pressure cuff and took a manual blood pressure at home with the results reaching 210/137. He became immediately worried that she may be having a stroke so he proceeded to bring her to the emergency room for further evaluation. A head CT done in the emergency room revealed a hypodensity in the left parietal temporal lobe, seen with an acute infarct. An old infarct in the left cerebellum and right basal ganglia were also noted. Cardiology has been consulted at this time for possible transesophageal echocardiogram to rule out cardiac etiology. Initial twelve lead electrocardiogram done in the emergency room reveals a normal sinus rhythm with left ventricular hypertrophy. Past Medical History Past medical history reviewed. No other significant than mentioned above. Past Surgical History Denies any previous surgeries Allergies: Coded Allergies: NO KNOWN ALLERGIES (Unverified , 07/16/15) Current Medications Current Medications Medications (Trade) Dose Ordered Sig/Mai Route PRN Reason Start Time Stop Time Status Last Admin Lorazepam (Ativan Inj) 1 mg ONCE PRN IV MRI 02/10/25 20:00 Potassium Chloride 100 ml @ 50 mls/hr Q2H IV 02/11/25 06:00 02/11/25 09:59 DC 02/11/25 08:20 Review of Systems Constitutional: No symptom reported Ears, Nose, & Throat: No symptom reported Eyes: No symptom reported Neurological: Slurred speech, confusion Pulmonary/Respiratory: No symptoms reported Cardiovascular: No symptom reported Gastrointestinal: No symptom reported Genitourinary: No symptom reported Musculoskeletal: No symptom reported Skin: No symptom reported Psychiatric: No symptom reported Endocrine: No symptom reported Hematologic/Lymphatic: No symptom reported Vital Signs Vital Signs Date Time Temp Pulse Resp B/P (MAP) Pulse Ox O2 Delivery O2 Flow Rate FiO2 02/11/25 16:00 15 97 Room Air* 0 21 02/11/25 16:00 114 02/11/25 15:00 172/79 (110) 02/11/25 12:00 98.8 98.8 Physical Exam GENERAL: Alert and oriented x 3. No acute distress. Obese. EYES: PERRL, EOMI. Anicteric. HENT: Moist mucous membranes. LUNGS: Clear to auscultation bilaterally. CARDIOVASCULAR: Regular rate and rhythm. ABDOMEN: Soft, nontender and nondistended. EXTREMITIES: No edema. NEUROLOGIC: No focal neurological deficits. SKIN: Warm, dry. Labs/Diagnostic Data Labs Test 02/11/25 13:33 02/11/25 12:33 02/11/25 02:54 02/09/25 13:17 Range/Units Urine Color Light-yellow Yellow Urine Clarity Clear Clear Urine pH 5.5 5.0-9.0 Urine Specific [place] 1.015 1.001-1.035 Urine Protein Negative Negative Urine Ketones 2+ H Negative Urine Blood Negative Negative /uL Urine Nitrite Negative Negative Urine Bilirubin Negative Negative Urine Urobilinogen Normal Negative mg/dL Urine Leukocyte Esterase Negative Negative /uL Urine RBC 1 0 - 4 /hpf Urine Microscopic WBC 1 0-5 /HPF Urine Squamous Epithelial Cells Few <5 /hpf Urine Bacteria None seen None Seen /hpf Urine Mucus Few None Seen Urine Glucose 4+ H Normal mg/dL Urine Opiates Screen Neg NEGATIVE Urine Fentanyl Screen Neg NEGATIVE Urine Barbiturates Screen Neg NEGATIVE Urine Phencyclidine Screen Neg NEGATIVE Urine Amphetamines Screen Neg NEGATIVE Urine Benzodiazepines Screen Neg NEGATIVE Urine Cocaine Screen Neg NEGATIVE Urine Cannabinoids Screen Pos NEGATIVE POC Glucose 238 H 70-106 mg/dl White Blood Count 8.7 4.4-10.8 10^3/uL Red Blood Count 4.52 4.0-5.20 10^6/uL Hemoglobin 12.9 12.2-16.2 g/dL Hematocrit 38.8 36.0-46.0 % Mean Corpuscular Volume 85.8 80.0-100.0 fL Mean Corpuscular Hemoglobin 28.5 28.0-32.0 pg Mean Corpuscular Hemoglobin Concent 33.3 32.0-36.0 g/dL Red Cell Distribution Width 14.6 H 11.8-14.3 % Platelet Count 315 140-450 10^3/uL Mean Platelet Volume 7.8 6.9-10.8 fL Neutrophils (%) (Auto) 76.0 37.0-80.0 % Lymphocytes (%) (Auto) 15.7 10.0-50.0 % Monocytes (%) (Auto) 7.3 0.0-12.0 % Eosinophils (%) (Auto) 0.7 0.0-7.0 % Basophils (%) (Auto) 0.3 0.0-2.0 % Neutrophils # (Auto) 6.6 1.6-8.6 10 ^3/uL Lymphocytes # (Auto) 1.4 0.4-5.4 10 ^3/uL Monocytes # (Auto) 0.6 0-1.3 10 ^3/uL Eosinophils # (Auto) 0.1 0-0.8 10 ^3/uL Basophils # (Auto) 0 0-0.2 10 ^3/uL Nucleated Red Blood Cells 0.1 % Sodium Level 138 136-145 mmol/L Potassium Level 3.2 L 3.5-5.1 mmol/L Chloride Level 107 98-107 mmol/L Carbon Dioxide Level 24 20-31 mmol/L Anion Gap 7 5-15 Blood Urea Nitrogen < 5 L 9-23 mg/dL Creatinine 0.59 0.550-1.02 mg/dL Glomerular Filtration Rate Calc 104 >90 mL/min BUN/Creatinine Ratio 8.5 L 10.0-20.0 Serum Glucose 221 H 74-106 mg/dL Calcium Level 8.5 L 8.7-10.4 mg/dL Magnesium Level 2.0 1.6-2.6 mg/dL Thyroid Stimulating Hormone (TSH) 2.45 0.55-4.78 uIU/mL Troponin I High Sensitivity 9 </=34 ng/L Test 02/09/25 10:25 Range/Units Hemoglobin A1c 13.7 H <5.7 % A1C Total Bilirubin 0.5 0.2-1.0 mg/dL Aspartate Amino Transferase (AST) 11 L 13-40 U/L Alanine Aminotransferase (ALT) 19 7-40 U/L Alkaline Phosphatase 120 H 46-116 U/L Total Protein 7.8 5.7-8.2 g/dL Albumin 4.6 3.2-4.8 g/dL Triglycerides Level 96 < 150 mg/dL Cholesterol Level 237 H < 200 mg/dL LDL Cholesterol 157 H < 100 mg/dL HDL Cholesterol 65 H 40-59 mg/dL Microbiology Date/Time Source Procedure Growth Status 02/10/25 18:40 Nose MRSA Screen - Final Complete Assessment Acute CVA, rule out cardiac etiology. Rule out cardiac arrhythmias. Rule out structural heart disease. Hypertensive emergency. Dyslipidemia, newly diagnosed. Type 2 diabetes mellitus, uncontrolled (Hgb A1c 13.7%), newly diagnosed. Hypokalemia. Hypomagnesemia, resolved. Tobacco use. Morbid obesity. Plan/Recommendation I agree with your ongoing assessment and care of plan. Patient has been seen by Kinjal Knox NP on my behalf, her and I discussed the plan with the patient. Given the patient's history of stroke and acute stroke, the patient may benefit from a transesophageal echocardiogram. Procedure was discussed with patient and patient's son, Damion in full detail. Given that the patient is confused, patient's son is agreeable to consent for the patient. We will tentatively schedule the patient for 02/12/2025. Transesophageal echocardiogram to evaluate cardiac function. Transthoracic echocardiogram reveals EF 75% with normal valves. Aggressive BP control; permissive hypertension per Neurology. Lipid-lowering agent and single antiplatelet therapy. Close Cardiac surveillance; monitor for any cardiac arrhythmias. Additional plan as per the hospital course. Plan discussed with: Son NYHA Physical activity limitations: NA Date of Service: Feb 11, 2025 Billing Provider: HARDIK BURGESS MD Cardiology Common Codes: 16552-[id number] INP/OBS CARE (High) Cardiology Consultation Codes: [id number] CONSULT <45MIN HARDIK BURGESS MD Feb 11, 2025 16:31
[2025-02-12] VITALS (39 sets, daily range): BP systolic 105–191; BP diastolic 64–103; PULSE 70–104; RESP 12–21; TEMP 98.3–98.7; O2SAT 91–100
[2025-02-12 04:07] LABS: Basophils # (auto) 0.1 10 ^3/uL (0-0.2); Basophils % (auto) 0.8 % (0.0-2.0); Eosinophils # (auto) 0.1 10 ^3/uL (0-0.8); Eosinophils % (auto) 1.5 % (0.0-7.0); Hematocrit 40.2 % (36.0-46.0); Hemoglobin 13.6 g/dL (12.2-16.2); Mean Corpuscular Hemoglobin 29.1 pg (28.0-32.0); Mean Corpuscular Hgb Conc. 33.8 g/dL (32.0-36.0); Monocytes # (auto) 0.7 10 ^3/uL (0-1.3); Monocytes % (auto) 7.4 % (0.0-12.0); Neutrophils # (auto) 5.9 10 ^3/uL (1.6-8.6); Neutrophils % (auto) 67.3 % (37.0-80.0); Nucleated Red Blood Cells % 0.1 %; Platelet Count (auto) 335 10^3/uL (140-450); Red Blood Cells 4.67 10^6/uL (4.0-5.20); Red Cell Distribution Width 14.6 % (11.8-14.3); White Blood Cell 8.8 10^3/uL (4.4-10.8)
[2025-02-12 04:11] LABS: Alanine Aminotransferase 16 U/L (7-40); Alkaline Phosphatase 107 U/L (46-116); Anion Gap 8 (5-15); BUN/Creatinine Ratio 10.8 (10.0-20.0); Calcium 9.1 mg/dL (8.7-10.4); Carbon Dioxide 24 mmol/L (20-31); Sodium 140 mmol/L (136-145); Total Protein 7.1 g/dL (5.7-8.2)
[2025-02-12 04:12] LABS: Albumin 4.1 g/dL (3.2-4.8); Bilirubin, Total 0.9 mg/dL (0.2-1.0)
[2025-02-12 04:21] LABS: Blood Urea Nitrogen 7 mg/dL (9-23); Chloride 108 mmol/L (98-107); Glucose 209 mg/dL (74-106)
[2025-02-12 04:39] LABS: Aspartate Aminotransferase 14 U/L (13-40)
[2025-02-12] MEDS: LIDOCAINE VISCOUS 2% 15ML UD PO ONE (07:45)
[2025-02-12] MEDS: MIDAZOLAM HCL 5 MG/ML-1ML VIAL IV ONE (07:45)
[2025-02-12] MEDS: diphenhdrAMINE HCL 50 MG/1 ML VL IV ONE (07:45)
[2025-02-12] MEDS: fentaNYL CITRATE 100 MCG/2 ML VL IV ONE (07:45)
--- NOTE | 2025-02-12 08:54 | DVHPN2 ---
Progress Note - Dictate Date Seen: Feb 12, 2025 Medical Necessity Reason Pt with a Central, PICC or Fol: No Subjective Ms. Weller is a 59 years old right-handed female with a history of hypertension, obesity, possible heart attack, she was brought to the [facility] on for altered mental status. I have seen and examined the patient, I have discussed with her nurse. She is alert, oriented to person, place, she knows year and the month, her speech is better, but she still has a little bit of delay when she answers questions UDS, 02/11/2025: Cannabinoids CBC, 02/09/2025: Unremarkable CMP, 02/09/2025: Unremarkable HGB A1c, 02/09/2025: 13.7 TG/HDL/LDL/HDL, 02/09/2025: 96/237/157/65 Echocardiogram, 02/11/2025: MILD LVH AND MILD LV DIASTOLIC DYSFUNCTION LV EF IS 75% AND IS NORMAL NORMAL VALVES NO EFFUSION CT head, 02/09/2025: Hypodensity in the left parietal temporal lobe can be seen with an acute infarct. Old infarct in the left cerebellum and right basal ganglia CTA head, neck, 02/09/2025: 1. No hemodynamically significant stenosis, proximal occlusion or aneurysm in the intracranial arteries. 2. No hemodynamically significant stenosis in the cervical segments of the carotid and vertebral arteries MR head, 02/11/2025: 1. Acute infarct in the left temporo-occipital region. 2. Additional nonacute findings as detailed above (I saw evidence suggestive of bilateral basal ganglia region lacunar strokes) vital signs Vital Sign Date Time Temp Pulse Resp B/P (MAP) Pulse Ox O2 Delivery O2 Flow Rate FiO2 02/12/25 07:00 94 19 135/77 (96) 95 02/12/25 06:00 Room Air* 0 21 02/12/25 04:00 98.4 98.4 Total Intake and Output 02/11/25 02/11/25 02/12/25 15:00 23:00 07:00 Intake Total 260 ml 287.5 ml 425 ml Output Total 600 ml 800 ml Balance 260 ml -312.5 ml -375 ml medications Current Medications Medications Dose Ordered Sig/Mai Route Start Time Stop Time Status Last Admin Dose Admin Losartan Potassium 25 mg DAILY PO 02/10/25 10:00 Carvedilol 6.25 mg Q12HR PO 02/09/25 22:00 02/11/25 21:41 6.25 MG Acetaminophen 325 mg Q6HP PRN PO 02/09/25 14:30 Atorvastatin Calcium 40 mg HS PO 02/09/25 22:00 02/11/25 21:40 40 MG Aspirin 81 mg DAILY PO 02/10/25 10:00 02/11/25 14:54 81 MG Nitroglycerin 0.4 mg Q5MINP PRN SL 02/09/25 14:30 Morphine Sulfate 2 mg Q30M PRN IV 02/09/25 14:45 Diagnostic Test (Pha) 1 strip Q6HR 02/09/25 18:00 02/12/25 05:52 1 STRIP Insulin Human Regular Q6HR SC 02/09/25 18:00 02/12/25 05:53 4 UNITS Dextrose 50 ml UD PRN IV 02/09/25 14:30 Ondansetron HCl 4 mg Q4HPRN PRN IV 02/09/25 20:15 02/10/25 03:04 4 MG Nicardipine HCl 50 mg/Sodium Chloride 250 ml @ 25 mls/hr Q10H IV 02/10/25 11:00 02/11/25 23:33 50 MLS/HR Hydralazine HCl 10 mg Q4HP PRN IV 02/10/25 13:00 02/10/25 13:23 10 MG Lorazepam 1 mg ONCE PRN IV 02/10/25 20:00 objective General: the patient is well developed and nourished. No acute distress. MENTAL STATUS: Subjective SPEECH, LANGUAGE, HIGHER CORTICAL FUNCTION: Subjective CRANIAL NERVES: Pupils are equal, round and reactive. EOMs full and conjugate. No nystagmus. Facial sensation intact in all three divisions bilaterally. Mandibular strength intact. Facial muscles symmetrical and strength intact. SENSATION: Sensation to touch and pinprick is normal. MOTOR: Normal tone in the upper and lower extremity. Normal muscle bulk. No fasciculations. No abnormal movements or posturing. Muscle strength of the major groups in the extremities is > 4/5. REFLEXES: Deep tendon reflexes are symmetrical. No pathological reflexes. CEREBELLAR/COORDINATION: Finger to nose is normal bilaterally. GAIT/STATION: deferred. laboratory and microbiology Laboratory Tests 02/12/25 02:50 Test 02/12/25 02:50 Range/Units Serum Glucose 209 H 74-106 mg/dL Problem List Hypertension emergency Altered mental status Hypertensive encephalopathy Acute on chronic strokes ? Global aphasia Acute stroke Chronic multiple strokes Obesity Multiple stroke risk factors Assessment/Plan Monitoring Supportive treatment ALBERTO ICU care Stabilize vitals Aspirin 81 mg daily Lipitor 40 mg daily DVT prophylaxis Quit tobacco smoking Weight control Speech pathology Re: ? Aphasia More recommendation per clinical course This medical document was created using an electronic medical record system with [employer] dictation system. Although this document has been carefully reviewed, there may still be some phonetic and typographical errors. These areas are purely typographical due to imperfections of the software programs, and do not reflect any compromise in the patient's medical care. Prognosis Poor Dietary Evaluation Review Recommendations by RD: Dietary education by RD Comments: 1) If patient remains NPO > 7 days, consider EN/TPN to meet at least 75% of estimated daily needs 2) Advance to 60g CCHO 2g Na diet when medically feasible, pending ST approval 3) Refer to outpatient RD/CDCES for diabetes education and weight management 4) Educate on the importance of SMBG. Consider continuous glucose monitor if patient d/c with insulin regimen 5) Follow-up with neurology and cardiology 6) Follow-up with physical therapy Expected Outcomes/Goals: 1) patient to receive nutrition support within 7 days of NPO status 2) labs to improve 3) diet to advance 4) f/u in 2-3 days Plan discussed with: Other Critical Care Time(min): 30 KRISTA CHILDRESS MD Feb 12, 2025 08:54
--- NOTE | 2025-02-12 10:43 | DVHPN2 ---
Progress Note Date Seen: Feb 12, 2025 Medical Necessity Reason Pt with a Central, PICC or Fol: No Subjective Patient reports: Feels better Other Systems: catherine requested, pt removed catherine probe and wound not follow commands to perform procedure Objective vital signs Vital Sign Date Time Temp Pulse Resp B/P (MAP) Pulse Ox O2 Delivery O2 Flow Rate FiO2 02/12/25 08:00 15 97 Room Air* 0 21 02/12/25 07:00 94 135/77 (96) 02/12/25 04:00 98.4 98.4 Total Intake and Output 02/11/25 02/11/25 02/12/25 15:00 23:00 07:00 Intake Total 260 ml 287.5 ml 425 ml Output Total 600 ml 800 ml Balance 260 ml -312.5 ml -375 ml medications Current Medications Medications Dose Ordered Sig/Mai Route Start Time Stop Time Status Last Admin Dose Admin Losartan Potassium 25 mg DAILY PO 02/10/25 10:00 Carvedilol 6.25 mg Q12HR PO 02/09/25 22:00 02/11/25 21:41 6.25 MG Acetaminophen 325 mg Q6HP PRN PO 02/09/25 14:30 Atorvastatin Calcium 40 mg HS PO 02/09/25 22:00 02/11/25 21:40 40 MG Aspirin 81 mg DAILY PO 02/10/25 10:00 02/11/25 14:54 81 MG Nitroglycerin 0.4 mg Q5MINP PRN SL 02/09/25 14:30 Morphine Sulfate 2 mg Q30M PRN IV 02/09/25 14:45 Diagnostic Test (Pha) 1 strip Q6HR 02/09/25 18:00 02/12/25 05:52 1 STRIP Insulin Human Regular Q6HR SC 02/09/25 18:00 02/12/25 05:53 4 UNITS Dextrose 50 ml UD PRN IV 02/09/25 14:30 Ondansetron HCl 4 mg Q4HPRN PRN IV 02/09/25 20:15 02/10/25 03:04 4 MG Nicardipine HCl 50 mg/Sodium Chloride 250 ml @ 25 mls/hr Q10H IV 02/10/25 11:00 02/11/25 23:33 50 MLS/HR Hydralazine HCl 10 mg Q4HP PRN IV 02/10/25 13:00 02/10/25 13:23 10 MG Lorazepam 1 mg ONCE PRN IV 02/10/25 20:00 Examination: GENERAL:Abnormal, HEENT:Abnormal, LUNGS:Abnormal, CVS:Abnormal, ABDOMEN:Abnormal laboratory and microbiology Laboratory Tests 02/12/25 02:50 Test 02/12/25 02:50 Range/Units Serum Glucose 209 H 74-106 mg/dL Microbiology Date/Time Source Procedure Growth Status 02/10/25 18:40 Nose MRSA Screen - Final Complete Problem List/Assessment/Plan Problem List/Assessment/Plan cva obesity htn catherine couldnt be completed, can do bubble study echo rest of management per dr danny cohn Plan discussed with: Patient My Orders My Orders Orders - XOCHITL SAMSON MD Procedure Category Date Status Time Transesoph US 02/12/25 Logged Echocardiogram Dietary Evaluation Review Recommendations by RD: Dietary education by RD Comments: 1) If patient remains NPO > 7 days, consider EN/TPN to meet at least 75% of estimated daily needs 2) Advance to 60g CCHO 2g Na diet when medically feasible, pending ST approval 3) Refer to outpatient RD/CD[facility] for diabetes education and weight management 4) Educate on the importance of SMBG. Consider continuous glucose monitor if patient d/c with insulin regimen 5) Follow-up with neurology and cardiology 6) Follow-up with physical therapy Expected Outcomes/Goals: 1) patient to receive nutrition support within 7 days of NPO status 2) labs to improve 3) diet to advance 4) f/u in 2-3 days Date of Service: Feb 12, 2025 Billing Provider: XOCHITL SAMSON MD Common Visit Codes: NOT BILLABLE XOCHITL SAMSON MD Feb 12, 2025 10:43
--- NOTE | 2025-02-12 10:53 | DVHOP2 ---
Operative Report PROCEDURES PERFORMED: trans esophageal echocardiogram, conscious sedation <15 mins, PREOPERATIVE DIAGNOSES: cva POSTOP DIAGNOSIS:cva DESCRIPTION OF PROCEDURE: The patient or appropriate family signed informed consent understanding the risks, benefits and alternatives of the procedure, they wished to proceed. The patient was brought to the cardiac labeling associate in n.p.o. state. the patient was given 15 ml of oral viscous lidocaine. the patient was placed in a left lateral decubitus position with bite block in mouth. NExt conscious sedation was administered per labeling associate protocol with _1_ mg of versed and _50__ mcg of fentanyl. and 25 mg iv benadryl Next a ALBERTO probe was advanced to the mid esophagus but pt pulled it out and gagged. despite sedation, pt was drooling a lot and not able to comply. i decided to terminate the procedure. c onsider with deep sedation with anesthesia if needed XOCHITL SAMSON MD Feb 12, 2025 10:53
--- NOTE | 2025-02-12 16:33 | DVHPN2 ---
Subjective This is a follow up on acute CVA patient is currently denies any motor deficit slurred speech. MRI brain showed acute evidence of infarct in tempo extubated region. Patient is currently denies any motor deficit or slurred speech. 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 Medications Current Medications Medications Dose Ordered Sig/Mai Route Start Time Stop Time Status Last Admin Dose Admin Losartan Potassium 25 mg DAILY PO 02/10/25 10:00 02/12/25 11:03 25 MG Carvedilol 6.25 mg Q12HR PO 02/09/25 22:00 02/12/25 11:03 6.25 MG Acetaminophen 325 mg Q6HP PRN PO 02/09/25 14:30 Atorvastatin Calcium 40 mg HS PO 02/09/25 22:00 02/11/25 21:40 40 MG Aspirin 81 mg DAILY PO 02/10/25 10:00 02/12/25 11:02 81 MG Nitroglycerin 0.4 mg Q5MINP PRN SL 02/09/25 14:30 Morphine Sulfate 2 mg Q30M PRN IV 02/09/25 14:45 Diagnostic Test (Pha) 1 strip Q6HR 02/09/25 18:00 02/12/25 12:14 1 STRIP Insulin Human Regular Q6HR SC 02/09/25 18:00 02/12/25 12:15 3 UNITS Dextrose 50 ml UD PRN IV 02/09/25 14:30 Ondansetron HCl 4 mg Q4HPRN PRN IV 02/09/25 20:15 02/10/25 03:04 4 MG Nicardipine HCl 50 mg/Sodium Chloride 250 ml @ 25 mls/hr Q10H IV 02/10/25 11:00 02/11/25 23:33 50 MLS/HR Hydralazine HCl 10 mg Q4HP PRN IV 02/10/25 13:00 02/10/25 13:23 10 MG Lorazepam 1 mg ONCE PRN IV 02/10/25 20:00 Laboratory Results Laboratory Tests 02/12/25 02:50 Chemistry Test 02/12/25 02:50 Albumin 4.1 g/dL (3.2-4.8) Calcium Level 9.1 mg/dL (8.7-10.4) Total Protein 7.1 g/dL (5.7-8.2) LFT Test 02/12/25 02:50 Alanine Aminotransferase (ALT) 16 U/L (7-40) Alkaline Phosphatase 107 U/L (46-116) Aspartate Amino Transferase (AST) 14 U/L (13-40) Total Bilirubin 0.9 mg/dL (0.2-1.0) Urinalysis Test 02/11/25 13:33 Urine Color Light-yellow (Yellow) Urine Clarity Clear (Clear) Urine pH 5.5 (5.0-9.0) Urine Specific [place] 1.015 (1.001-1.035) Urine Protein Negative (Negative) Urine Ketones 2+ (Negative) H Urine Blood Negative /uL (Negative) Urine Nitrite Negative (Negative) Urine Bilirubin Negative (Negative) Urine Urobilinogen Normal mg/dL (Negative) Urine Leukocyte Esterase Negative /uL (Negative) Urine RBC 1 /hpf (0 - 4) Urine Microscopic WBC 1 /HPF (0-5) Urine Squamous Epithelial Cells Few /hpf (<5) Urine Bacteria None seen /hpf (None Seen) Urine Mucus Few (None Seen) Urine Glucose 4+ mg/dL (Normal) H Microbiology Microbiology Date/Time Source Procedure Growth Status 02/10/25 18:40 Nose MRSA Screen - Final Complete Assessment/Plan Assessment/Plan 89-year-old female with a known history of hypertension, chronic tobacco use disorder chronic alcoholism, chronic marijuana use previous history of cocaine use presented to the hospital with slurred speech and right-sided weakness found to have 1. 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 Dysarthria and slurred speech resolved 3. Hypertensive urgency currently on nicardipine drip 4. Chronic tobacco use disorder 5. Chronic alcoholism 6. Chronic marijuana use -aspirin, statin, neurology consultation and follow up -ALBERTO by Cardiology. Plan discussed with: Patient My Orders Orders - KENNY GODINEZ MD Procedure Category Date Status Time Apply Z-Guard NBA 02/11/25 In Process 12:10 Cardiac DIET 02/12/25 Transmitted Diet-2gna,Lofat,Lochol Dinner Date of Service: Feb 12, 2025 Billing Provider: KENNY GODINEZ MD Common Visit Codes: [id number] INP/OBS CARE(MOD) KENNY GODINEZ MD Feb 12, 2025 16:33
[2025-02-13] VITALS (22 sets, daily range): BP systolic 129–182; BP diastolic 70–101; PULSE 64–98; RESP 11–23; TEMP 97.8–98.6; O2SAT 91–99
--- NOTE | 2025-02-13 00:48 | DVHPN2 ---
Progress Note - Dictate Date Seen: Feb 12, 2025 Medical Necessity Reason Pt with a Central, PICC or Fol: No Subjective Patient was seen and evaluated in follow up in the ICU. Transthoracic echocardiogram reveals EF 75% with normal valves. ALBERTO was attempted today, however the patient removed ALBERTO probe and wound not follow commands to perform procedure. vital signs Vital Sign Date Time Temp Pulse Resp B/P (MAP) Pulse Ox O2 Delivery O2 Flow Rate FiO2 02/13/25 00:00 15 99 Room Air* 0 21 02/13/25 00:00 98.6 90 166/82 (110) 98.6 Total Intake and Output 02/12/25 02/12/25 02/13/25 15:00 23:00 07:00 Intake Total 15 ml Output Total 725 ml Balance -710 ml medications Current Medications Medications Dose Ordered Sig/Mai Route Start Time Stop Time Status Last Admin Dose Admin Losartan Potassium 25 mg DAILY PO 02/10/25 10:00 02/12/25 11:03 25 MG Carvedilol 6.25 mg Q12HR PO 02/09/25 22:00 02/12/25 21:31 6.25 MG Acetaminophen 325 mg Q6HP PRN PO 02/09/25 14:30 Atorvastatin Calcium 40 mg HS PO 02/09/25 22:00 02/12/25 21:30 40 MG Aspirin 81 mg DAILY PO 02/10/25 10:00 02/12/25 11:02 81 MG Nitroglycerin 0.4 mg Q5MINP PRN SL 02/09/25 14:30 Morphine Sulfate 2 mg Q30M PRN IV 02/09/25 14:45 Diagnostic Test (Pha) 1 strip Q6HR 02/09/25 18:00 02/12/25 23:36 1 STRIP Insulin Human Regular Q6HR SC 02/09/25 18:00 02/12/25 23:36 4 UNITS Dextrose 50 ml UD PRN IV 02/09/25 14:30 Ondansetron HCl 4 mg Q4HPRN PRN IV 02/09/25 20:15 02/10/25 03:04 4 MG Nicardipine HCl 50 mg/Sodium Chloride 250 ml @ 25 mls/hr Q10H IV 02/10/25 11:00 02/11/25 23:33 50 MLS/HR Hydralazine HCl 10 mg Q4HP PRN IV 02/10/25 13:00 02/12/25 22:18 10 MG Lorazepam 1 mg ONCE PRN IV 02/10/25 20:00 objective GENERAL: Alert and oriented x 1. No acute distress. Obese. EYES: PERRL, EOMI. Anicteric. HENT: Moist mucous membranes. LUNGS: Clear to auscultation bilaterally. CARDIOVASCULAR: Regular rate and rhythm. ABDOMEN: Soft, nontender and nondistended. EXTREMITIES: No edema. SKIN: Warm, dry. laboratory and microbiology Laboratory Tests 02/12/25 02:50 Test 02/12/25 02:50 Range/Units Serum Glucose 209 H 74-106 mg/dL Problem List Acute CVA, rule out cardiac etiology. Rule out cardiac arrhythmias. Rule out structural heart disease. Hypertensive emergency. Dyslipidemia, newly diagnosed. Type 2 diabetes mellitus, uncontrolled (Hgb A1c 13.7%), newly diagnosed. Hypokalemia. Hypomagnesemia, resolved. Tobacco use. Morbid obesity. Assessment/Plan Continued all current supportive medical care. Aspirin, Lipitor. Coreg, Losartan. IV Hydralazine for SBP >160. Morphine for pain. Nicardipine drip. Nitro SL. Additional plan as per the hospital course. Critical care time of 45 minutes provided to include time spent evaluation of patient at bedside, when appropriate patient/family education for diagnosis, treatment plan, review of pertinent medical information and discussion of care with specialty providers and PCP. Dietary Evaluation Review Recommendations by RD: Dietary education by RD Comments: 1) If patient remains NPO > 7 days, consider EN/TPN to meet at least 75% of estimated daily needs 2) Advance to 60g CCHO 2g Na diet when medically feasible, pending ST approval 3) Refer to outpatient RD/CDCES for diabetes education and weight management 4) Educate on the importance of SMBG. Consider continuous glucose monitor if patient d/c with insulin regimen 5) Follow-up with neurology and cardiology 6) Follow-up with physical therapy Expected Outcomes/Goals: 1) patient to receive nutrition support within 7 days of NPO status 2) labs to improve 3) diet to advance 4) f/u in 2-3 days Plan discussed with: HARDIK Diaz MD Feb 13, 2025 00:48
[2025-02-13 04:35] LABS: Alanine Aminotransferase 17 U/L (7-40); Albumin 3.9 g/dL (3.2-4.8); Alkaline Phosphatase 96 U/L (46-116); Anion Gap 8 (5-15); BUN/Creatinine Ratio 12.3 (10.0-20.0); Calcium 9.2 mg/dL (8.7-10.4); Carbon Dioxide 24 mmol/L (20-31); Chloride 105 mmol/L (98-107); Potassium 3.7 mmol/L (3.5-5.1); Sodium 137 mmol/L (136-145); Total Protein 6.7 g/dL (5.7-8.2)
[2025-02-13 04:36] LABS: Bilirubin, Total 0.7 mg/dL (0.2-1.0); Blood Urea Nitrogen 7 mg/dL (9-23); Glucose 181 mg/dL (74-106)
[2025-02-13 04:43] LABS: Basophils # (auto) 0.1 10 ^3/uL (0-0.2); Basophils % (auto) 0.7 % (0.0-2.0); Eosinophils # (auto) 0.2 10 ^3/uL (0-0.8); Eosinophils % (auto) 2.4 % (0.0-7.0); Hematocrit 38.5 % (36.0-46.0); Hemoglobin 12.9 g/dL (12.2-16.2); Lymphocytes # (auto) 1.7 10 ^3/uL (0.4-5.4); Lymphocytes % (auto) 24.6 % (10.0-50.0); Mean Corpuscular Hemoglobin 28.6 pg (28.0-32.0); Mean Corpuscular Hgb Conc. 33.5 g/dL (32.0-36.0); Mean Corpuscular Volume 85.5 fL (80.0-100.0); Monocytes # (auto) 0.6 10 ^3/uL (0-1.3); Monocytes % (auto) 8.1 % (0.0-12.0); Neutrophils # (auto) 4.4 10 ^3/uL (1.6-8.6); Neutrophils % (auto) 64.2 % (37.0-80.0); Nucleated Red Blood Cells % 0.2 %; Platelet Count (auto) 314 10^3/uL (140-450); Red Blood Cells 4.51 10^6/uL (4.0-5.20); Red Cell Distribution Width 14.6 % (11.8-14.3); White Blood Cell 6.9 10^3/uL (4.4-10.8)
[2025-02-13 05:04] LABS: Aspartate Aminotransferase 15 U/L (13-40)
[2025-02-13 05:48] LABS: Large Platelets FEW; Platelet Estimate Adequate
--- NOTE | 2025-02-13 08:18 | DVHPN2 ---
Progress Note - Dictate Date Seen: Feb 13, 2025 Medical Necessity Reason Pt with a Central, PICC or Fol: No Subjective Ms. Weller is a 59 years old right-handed female with a history of hypertension, obesity, possible heart attack, she was brought to the [facility] on for altered mental status. I have seen and examined the patient, I have discussed with her nurse. She is alert, oriented to person, place (RN: To person only earlier), her speech keeps improving, but occasionally she still answer questions inappropriately ALBERTO attempted on 02/12/2025 but failed UDS, 02/11/2025: Cannabinoids CBC, 02/09/2025: Unremarkable CMP, 02/09/2025: Unremarkable HGB A1c, 02/09/2025: 13.7 TG/HDL/LDL/HDL, 02/09/2025: 96/237/157/65 Echocardiogram, 02/11/2025: MILD LVH AND MILD LV DIASTOLIC DYSFUNCTION LV EF IS 75% AND IS NORMAL NORMAL VALVES NO EFFUSION CT head, 02/09/2025: Hypodensity in the left parietal temporal lobe can be seen with an acute infarct. Old infarct in the left cerebellum and right basal ganglia CTA head, neck, 02/09/2025: 1. No hemodynamically significant stenosis, proximal occlusion or aneurysm in the intracranial arteries. 2. No hemodynamically significant stenosis in the cervical segments of the carotid and vertebral arteries MR head, 02/11/2025: 1. Acute infarct in the left temporo-occipital region. 2. Additional nonacute findings as detailed above (I saw evidence suggestive of bilateral basal ganglia region lacunar strokes) vital signs Vital Sign Date Time Temp Pulse Resp B/P (MAP) Pulse Ox O2 Delivery O2 Flow Rate FiO2 02/13/25 07:00 77 13 139/70 (93) 94 02/13/25 06:00 Room Air* 0 21 02/13/25 04:00 98.2 98.2 Total Intake and Output 02/12/25 02/12/25 02/13/25 15:00 23:00 07:00 Intake Total 15 ml 350 ml Output Total 725 ml 500 ml Balance -710 ml -150 ml medications Current Medications Medications Dose Ordered Sig/Mai Route Start Time Stop Time Status Last Admin Dose Admin Losartan Potassium 25 mg DAILY PO 02/10/25 10:00 02/12/25 11:03 25 MG Carvedilol 6.25 mg Q12HR PO 02/09/25 22:00 02/12/25 21:31 6.25 MG Acetaminophen 325 mg Q6HP PRN PO 02/09/25 14:30 Atorvastatin Calcium 40 mg HS PO 02/09/25 22:00 02/12/25 21:30 40 MG Aspirin 81 mg DAILY PO 02/10/25 10:00 02/12/25 11:02 81 MG Nitroglycerin 0.4 mg Q5MINP PRN SL 02/09/25 14:30 Morphine Sulfate 2 mg Q30M PRN IV 02/09/25 14:45 Diagnostic Test (Pha) 1 strip Q6HR 02/09/25 18:00 02/13/25 05:36 1 STRIP Insulin Human Regular Q6HR SC 02/09/25 18:00 02/13/25 05:38 3 UNITS Dextrose 50 ml UD PRN IV 02/09/25 14:30 Ondansetron HCl 4 mg Q4HPRN PRN IV 02/09/25 20:15 02/10/25 03:04 4 MG Nicardipine HCl 50 mg/Sodium Chloride 250 ml @ 25 mls/hr Q10H IV 02/10/25 11:00 02/11/25 23:33 50 MLS/HR Hydralazine HCl 10 mg Q4HP PRN IV 02/10/25 13:00 02/12/25 22:18 10 MG Lorazepam 1 mg ONCE PRN IV 02/10/25 20:00 objective General: the patient is well developed and nourished. No acute distress. MENTAL STATUS: Subjective SPEECH, LANGUAGE, HIGHER CORTICAL FUNCTION: Subjective CRANIAL NERVES: Pupils are equal, round and reactive. EOMs full and conjugate. No nystagmus. Facial sensation intact in all three divisions bilaterally. Mandibular strength intact. Facial muscles symmetrical and strength intact. SENSATION: Sensation to touch and pinprick is normal. MOTOR: Normal tone in the upper and lower extremity. Normal muscle bulk. No fasciculations. No abnormal movements or posturing. Muscle strength of the major groups in the extremities is > 4/5. REFLEXES: Deep tendon reflexes are symmetrical. No pathological reflexes. CEREBELLAR/COORDINATION: Finger to nose is normal bilaterally. GAIT/STATION: deferred. laboratory and microbiology Laboratory Tests 02/13/25 03:11 Test 02/13/25 03:11 Range/Units Serum Glucose 181 H 74-106 mg/dL Problem List Hypertension emergency Altered mental status Hypertensive encephalopathy Acute on chronic strokes ? Global aphasia Acute stroke Chronic multiple strokes Obesity Multiple stroke risk factors Assessment/Plan Monitoring Supportive treatment ALBERTO (failed) Aspirin 81 mg daily Lipitor 40 mg daily DVT prophylaxis Quit tobacco smoking Weight control Speech pathology Re: ? Aphasia More recommendation per clinical course This medical document was created using an electronic medical record system with [employer] dictation system. Although this document has been carefully reviewed, there may still be some phonetic and typographical errors. These areas are purely typographical due to imperfections of the software programs, and do not reflect any compromise in the patient's medical care. Prognosis poor Dietary Evaluation Review Recommendations by RD: Dietary education by RD Comments: 1) If patient remains NPO > 7 days, consider EN/TPN to meet at least 75% of estimated daily needs 2) Advance to 60g CCHO 2g Na diet when medically feasible, pending ST approval 3) Refer to outpatient RD/CDCES for diabetes education and weight management 4) Educate on the importance of SMBG. Consider continuous glucose monitor if patient d/c with insulin regimen 5) Follow-up with neurology and cardiology 6) Follow-up with physical therapy Expected Outcomes/Goals: 1) patient to receive nutrition support within 7 days of NPO status 2) labs to improve 3) diet to advance 4) f/u in 2-3 days Plan discussed with: Other KRISTA CHILDRESS MD Feb 13, 2025 08:18
[2025-02-13] MEDS: LOSARTAN POTASSIUM 50 MG TAB PO SCH (18:05)
--- NOTE | 2025-02-13 18:14 | DVHPN2 ---
Subjective This is a follow up on acute CVA patient is currently denies any motor deficit slurred speech. MRI brain showed acute evidence of infarct in temporal occipital region Patient is currently denies any motor deficit or slurred speech. 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 Medications Current Medications Medications Dose Ordered Sig/Mai Route Start Time Stop Time Status Last Admin Dose Admin Carvedilol 6.25 mg Q12HR PO 02/09/25 22:00 02/13/25 10:00 6.25 MG Acetaminophen 325 mg Q6HP PRN PO 02/09/25 14:30 Atorvastatin Calcium 40 mg HS PO 02/09/25 22:00 02/12/25 21:30 40 MG Aspirin 81 mg DAILY PO 02/10/25 10:00 02/13/25 10:00 81 MG Nitroglycerin 0.4 mg Q5MINP PRN SL 02/09/25 14:30 Morphine Sulfate 2 mg Q30M PRN IV 02/09/25 14:45 Diagnostic Test (Pha) 1 strip Q6HR 02/09/25 18:00 02/13/25 17:56 1 STRIP Insulin Human Regular Q6HR SC 02/09/25 18:00 02/13/25 17:57 4 UNITS Dextrose 50 ml UD PRN IV 02/09/25 14:30 Ondansetron HCl 4 mg Q4HPRN PRN IV 02/09/25 20:15 02/10/25 03:04 4 MG Nicardipine HCl 50 mg/Sodium Chloride 250 ml @ 25 mls/hr Q10H IV 02/10/25 11:00 02/11/25 23:33 50 MLS/HR Hydralazine HCl 10 mg Q4HP PRN IV 02/10/25 13:00 02/12/25 22:18 10 MG Lorazepam 1 mg ONCE PRN IV 02/10/25 20:00 Losartan Potassium 50 mg DAILY PO 02/13/25 17:30 02/13/25 18:05 50 MG Laboratory Results Laboratory Tests 02/13/25 03:11 Chemistry Test 02/13/25 03:11 Albumin 3.9 g/dL (3.2-4.8) Calcium Level 9.2 mg/dL (8.7-10.4) Total Protein 6.7 g/dL (5.7-8.2) LFT Test 02/13/25 03:11 Alanine Aminotransferase (ALT) 17 U/L (7-40) Alkaline Phosphatase 96 U/L (46-116) Aspartate Amino Transferase (AST) 15 U/L (13-40) Total Bilirubin 0.7 mg/dL (0.2-1.0) Urinalysis Test 02/11/25 13:33 Urine Color Light-yellow (Yellow) Urine Clarity Clear (Clear) Urine pH 5.5 (5.0-9.0) Urine Specific [place] 1.015 (1.001-1.035) Urine Protein Negative (Negative) Urine Ketones 2+ (Negative) H Urine Blood Negative /uL (Negative) Urine Nitrite Negative (Negative) Urine Bilirubin Negative (Negative) Urine Urobilinogen Normal mg/dL (Negative) Urine Leukocyte Esterase Negative /uL (Negative) Urine RBC 1 /hpf (0 - 4) Urine Microscopic WBC 1 /HPF (0-5) Urine Squamous Epithelial Cells Few /hpf (<5) Urine Bacteria None seen /hpf (None Seen) Urine Mucus Few (None Seen) Urine Glucose 4+ mg/dL (Normal) H Microbiology Microbiology Date/Time Source Procedure Growth Status 02/10/25 18:40 Nose MRSA Screen - Final Complete Assessment/Plan Assessment/Plan 89-year-old female with a known history of hypertension, chronic tobacco use disorder chronic alcoholism, chronic marijuana use previous history of cocaine use presented to the hospital with slurred speech and right-sided weakness found to have 1. 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 Dysarthria and slurred speech resolved 3. Hypertensive urgency , improved 4. Chronic tobacco use disorder 5. Chronic alcoholism 6. Chronic marijuana use -continue aspirin, statin, physical therapy evaluation treatment -speech therapy evaluation -follow up 2D echo with a bubble study. Plan discussed with: Patient My Orders Orders - KENNY GODINEZ MD Procedure Category Date Status Time Losartan Tablet PHA 02/13/25 In Process (Cozaar Tablet) 17:30 Date of Service: Feb 13, 2025 Billing Provider: KENNY GODINEZ MD Common Visit Codes: [id number] INP/OBS CARE(MOD) KENNY GODINEZ MD Feb 13, 2025 18:14
--- NOTE | 2025-02-13 23:00 | DVHPN2 ---
Progress Note - Dictate Date Seen: Feb 13, 2025 Medical Necessity Reason Pt with a Central, PICC or Fol: No Subjective Patient was seen and evaluated in follow up in the ICU. No overnight events. Patient is resting in bed. Patients speech and mentation are improving. CBC and chemistry are grossly unremarkable. vital signs Vital Sign Date Time Temp Pulse Resp B/P (MAP) Pulse Ox O2 Delivery O2 Flow Rate FiO2 02/13/25 22:51 75 143/82 02/13/25 22:00 17 99 Room Air* 0 21 02/13/25 16:00 97.8 97.8 Total Intake and Output 02/12/25 02/12/25 02/13/25 15:00 23:00 07:00 Intake Total 15 ml 350 ml Output Total 725 ml 500 ml Balance -710 ml -150 ml medications Current Medications Medications Dose Ordered Sig/Mai Route Start Time Stop Time Status Last Admin Dose Admin Carvedilol 6.25 mg Q12HR PO 02/09/25 22:00 02/13/25 21:51 6.25 MG Acetaminophen 325 mg Q6HP PRN PO 02/09/25 14:30 Atorvastatin Calcium 40 mg HS PO 02/09/25 22:00 02/13/25 21:50 40 MG Aspirin 81 mg DAILY PO 02/10/25 10:00 02/13/25 10:00 81 MG Nitroglycerin 0.4 mg Q5MINP PRN SL 02/09/25 14:30 Morphine Sulfate 2 mg Q30M PRN IV 02/09/25 14:45 Diagnostic Test (Pha) 1 strip Q6HR 02/09/25 18:00 02/13/25 17:56 1 STRIP Insulin Human Regular Q6HR SC 02/09/25 18:00 02/13/25 17:57 4 UNITS Dextrose 50 ml UD PRN IV 02/09/25 14:30 Ondansetron HCl 4 mg Q4HPRN PRN IV 02/09/25 20:15 02/10/25 03:04 4 MG Nicardipine HCl 50 mg/Sodium Chloride 250 ml @ 25 mls/hr Q10H IV 02/10/25 11:00 02/11/25 23:33 50 MLS/HR Hydralazine HCl 10 mg Q4HP PRN IV 02/10/25 13:00 02/13/25 19:50 10 MG Lorazepam 1 mg ONCE PRN IV 02/10/25 20:00 Losartan Potassium 50 mg DAILY PO 02/13/25 17:30 02/13/25 18:05 50 MG objective GENERAL: Alert and oriented x 3. No acute distress. Obese. EYES: PERRL, EOMI. Anicteric. HENT: Moist mucous membranes. LUNGS: Clear to auscultation bilaterally. CARDIOVASCULAR: Regular rate and rhythm. ABDOMEN: Soft, nontender and nondistended. EXTREMITIES: No edema. SKIN: Warm, dry. laboratory and microbiology Laboratory Tests 02/13/25 03:11 Test 02/13/25 03:11 Range/Units Serum Glucose 181 H 74-106 mg/dL Problem List Acute CVA, rule out cardiac etiology. Rule out cardiac arrhythmias. Rule out structural heart disease. Hypertensive emergency. Dyslipidemia, newly diagnosed. Type 2 diabetes mellitus, uncontrolled (Hgb A1c 13.7%), newly diagnosed. Hypokalemia. Hypomagnesemia, resolved. Tobacco use. Morbid obesity. Assessment/Plan Continued all current supportive medical care. Aspirin, Lipitor. Coreg, Losartan. IV Hydralazine for SBP >160. Morphine for pain. Nicardipine drip. Nitro SL. Additional plan as per the hospital course. Critical care time of 45 minutes provided to include time spent evaluation of patient at bedside, when appropriate patient/family education for diagnosis, treatment plan, review of pertinent medical information and discussion of care with specialty providers and PCP. Dietary Evaluation Review Recommendations by RD: Dietary education by RD Comments: 1) If patient remains NPO > 7 days, consider EN/TPN to meet at least 75% of estimated daily needs 2) Advance to 60g CCHO 2g Na diet when medically feasible, pending ST approval 3) Refer to outpatient RD/CDCES for diabetes education and weight management 4) Educate on the importance of SMBG. Consider continuous glucose monitor if patient d/c with insulin regimen 5) Follow-up with neurology and cardiology 6) Follow-up with physical therapy Expected Outcomes/Goals: 1) patient to receive nutrition support within 7 days of NPO status 2) labs to improve 3) diet to advance 4) f/u in 2-3 days Plan discussed with: Patient HARDIK BURGESS MD Feb 13, 2025 23:00
[2025-02-14] VITALS (20 sets, daily range): BP systolic 130–184; BP diastolic 48–102; PULSE 60–94; RESP 12–20; TEMP 36.7; O2SAT 95–99
[2025-02-14 03:42] LABS: Basophils # (auto) 0 10 ^3/uL (0-0.2); Basophils % (auto) 0.8 % (0.0-2.0); Eosinophils # (auto) 0.1 10 ^3/uL (0-0.8); Eosinophils % (auto) 1.8 % (0.0-7.0); Hematocrit 37.5 % (36.0-46.0); Hemoglobin 12.6 g/dL (12.2-16.2); Lymphocytes % (auto) 33.7 % (10.0-50.0); Mean Corpuscular Hemoglobin 28.5 pg (28.0-32.0); Mean Corpuscular Hgb Conc. 33.6 g/dL (32.0-36.0); Monocytes # (auto) 0.6 10 ^3/uL (0-1.3); Monocytes % (auto) 9.8 % (0.0-12.0); Neutrophils # (auto) 3.2 10 ^3/uL (1.6-8.6); Neutrophils % (auto) 53.9 % (37.0-80.0); Platelet Count (auto) 303 10^3/uL (140-450); Red Blood Cells 4.41 10^6/uL (4.0-5.20); Red Cell Distribution Width 14.3 % (11.8-14.3)
[2025-02-14 04:04] LABS: Alanine Aminotransferase 18 U/L (7-40); Albumin 3.8 g/dL (3.2-4.8); Alkaline Phosphatase 92 U/L (46-116); Anion Gap 9 (5-15); BUN/Creatinine Ratio 15.6 (10.0-20.0); Blood Urea Nitrogen 10 mg/dL (9-23); Calcium 9.1 mg/dL (8.7-10.4); Carbon Dioxide 25 mmol/L (20-31); Chloride 103 mmol/L (98-107); Potassium 3.7 mmol/L (3.5-5.1); Sodium 137 mmol/L (136-145); Total Protein 6.6 g/dL (5.7-8.2)
[2025-02-14 04:05] LABS: Bilirubin, Total 0.6 mg/dL (0.2-1.0)
[2025-02-14 04:07] LABS: Glucose 197 mg/dL (74-106)
[2025-02-14 04:21] LABS: Aspartate Aminotransferase 14 U/L (13-40)
--- NOTE | 2025-02-14 10:28 | DVHPN2 ---
Progress Note - Dictate Date Seen: Feb 14, 2025 Medical Necessity Reason Pt with a Central, PICC or Fol: No Subjective Ms. Weller is a 59 years old right-handed female with a history of hypertension, obesity, possible heart attack, she was brought to the [facility] on for altered mental status. I have seen and examined the patient, I have discussed with her nurse. She is alert, oriented to person, place. Her language keeps improving, but she may still have global aphasia Speech pathologist is to see her UDS, 02/11/2025: Cannabinoids CBC, 02/09/2025: Unremarkable CMP, 02/09/2025: Unremarkable HGB A1c, 02/09/2025: 13.7 TG/HDL/LDL/HDL, 02/09/2025: 96/237/157/65 Echocardiogram, 02/11/2025: MILD LVH AND MILD LV DIASTOLIC DYSFUNCTION LV EF IS 75% AND IS NORMAL NORMAL VALVES NO EFFUSION CT head, 02/09/2025: Hypodensity in the left parietal temporal lobe can be seen with an acute infarct. Old infarct in the left cerebellum and right basal ganglia CTA head, neck, 02/09/2025: 1. No hemodynamically significant stenosis, proximal occlusion or aneurysm in the intracranial arteries. 2. No hemodynamically significant stenosis in the cervical segments of the carotid and vertebral arteries MR head, 02/11/2025: 1. Acute infarct in the left temporo-occipital region. 2. Additional nonacute findings as detailed above (I saw evidence suggestive of bilateral basal ganglia region lacunar strokes) vital signs Vital Sign Date Time Temp Pulse Resp B/P (MAP) Pulse Ox O2 Delivery O2 Flow Rate FiO2 02/14/25 09:10 177/97 02/14/25 09:09 77 02/14/25 08:00 15 99 Room Air* 0 21 02/14/25 04:00 98.6 98.6 Total Intake and Output 02/13/25 02/13/25 02/14/25 15:00 23:00 07:00 Intake Total 380 ml 250 ml Output Total 550 ml 500 ml Balance -170 ml -250 ml medications Current Medications Medications Dose Ordered Sig/Mai Route Start Time Stop Time Status Last Admin Dose Admin Carvedilol 6.25 mg Q12HR PO 02/09/25 22:00 02/14/25 09:09 6.25 MG Acetaminophen 325 mg Q6HP PRN PO 02/09/25 14:30 Atorvastatin Calcium 40 mg HS PO 02/09/25 22:00 02/13/25 21:50 40 MG Aspirin 81 mg DAILY PO 02/10/25 10:00 02/14/25 09:08 81 MG Nitroglycerin 0.4 mg Q5MINP PRN SL 02/09/25 14:30 Morphine Sulfate 2 mg Q30M PRN IV 02/09/25 14:45 Diagnostic Test (Pha) 1 strip Q6HR 02/09/25 18:00 02/14/25 05:41 1 STRIP Insulin Human Regular Q6HR SC 02/09/25 18:00 02/14/25 05:44 4 UNITS Dextrose 50 ml UD PRN IV 02/09/25 14:30 Ondansetron HCl 4 mg Q4HPRN PRN IV 02/09/25 20:15 02/10/25 03:04 4 MG Nicardipine HCl 50 mg/Sodium Chloride 250 ml @ 25 mls/hr Q10H IV 02/10/25 11:00 02/11/25 23:33 50 MLS/HR Hydralazine HCl 10 mg Q4HP PRN IV 02/10/25 13:00 02/14/25 06:43 10 MG Lorazepam 1 mg ONCE PRN IV 02/10/25 20:00 Losartan Potassium 50 mg DAILY PO 02/13/25 17:30 02/14/25 09:10 50 MG objective General: the patient is well developed and nourished. No acute distress. MENTAL STATUS: Subjective SPEECH, LANGUAGE, HIGHER CORTICAL FUNCTION: Subjective CRANIAL NERVES: Pupils are equal, round and reactive. EOMs full and conjugate. No nystagmus. Facial sensation intact in all three divisions bilaterally. Mandibular strength intact. Facial muscles symmetrical and strength intact. SENSATION: Sensation to touch and pinprick is normal. MOTOR: Normal tone in the upper and lower extremity. Normal muscle bulk. No fasciculations. No abnormal movements or posturing. Muscle strength of the major groups in the extremities is > 4/5. REFLEXES: Deep tendon reflexes are symmetrical. No pathological reflexes. CEREBELLAR/COORDINATION: Finger to nose is normal bilaterally. GAIT/STATION: deferred. laboratory and microbiology Laboratory Tests 02/14/25 03:12 Test 02/14/25 03:12 Range/Units Serum Glucose 197 H 74-106 mg/dL Problem List Hypertension emergency Altered mental status Hypertensive encephalopathy Acute on chronic strokes ? Global aphasia Acute stroke Chronic multiple strokes Obesity Multiple stroke risk factors Assessment/Plan Monitoring Supportive treatment ALBERTO (failed) Aspirin 81 mg daily Lipitor 40 mg daily DVT prophylaxis Quit tobacco smoking Weight control Speech pathology Re: Aphasia More recommendation per clinical course This medical document was created using an electronic medical record system with [employer] dictation system. Although this document has been carefully reviewed, there may still be some phonetic and typographical errors. These areas are purely typographical due to imperfections of the software programs, and do not reflect any compromise in the patient's medical care. Prognosis poor Dietary Evaluation Review Recommendations by RD: Dietary education by RD Comments: 1) If patient remains NPO > 7 days, consider EN/TPN to meet at least 75% of estimated daily needs 2) Advance to 60g CCHO 2g Na diet when medically feasible, pending ST approval 3) Refer to outpatient RD/CDCES for diabetes education and weight management 4) Educate on the importance of SMBG. Consider continuous glucose monitor if patient d/c with insulin regimen 5) Follow-up with neurology and cardiology 6) Follow-up with physical therapy Expected Outcomes/Goals: 1) patient to receive nutrition support within 7 days of NPO status 2) labs to improve 3) diet to advance 4) f/u in 2-3 days Plan discussed with: Patient, Other KRISTA CHILDRESS MD Feb 14, 2025 10:28
[2025-02-14] MEDS ORDERED: CARV6.2517 PO (13:57)
[2025-02-14] MEDS ORDERED: CLOP75TA28 PO (13:57)
[2025-02-14] MEDS ORDERED: ASPI-325 PO (13:57)
[2025-02-14] MEDS ORDERED: ATOR40TA52 PO (13:57)
[2025-02-14] MEDS ORDERED: LOSA-534 PO (13:57)
--- NOTE | 2025-02-14 15:52 | DVHDS2 ---
Discharge Summary Date of Admission Feb 09, 2025 at 14:29 Date of Discharge: Feb 14, 2025 Labs/Diagnostic Data: Laboratory Results Test 02/14/25 11:55 02/14/25 03:12 02/13/25 03:11 02/11/25 13:33 POC Glucose 255 mg/dl (70-106) White Blood Count 6.0 10^3/uL (4.4-10.8) Red Blood Count 4.41 10^6/uL (4.0-5.20) Hemoglobin 12.6 g/dL (12.2-16.2) Hematocrit 37.5 % (36.0-46.0) Mean Corpuscular Volume 85.0 fL (80.0-100.0) Mean Corpuscular Hemoglobin 28.5 pg (28.0-32.0) Mean Corpuscular Hemoglobin Concent 33.6 g/dL (32.0-36.0) Red Cell Distribution Width 14.3 % (11.8-14.3) Platelet Count 303 10^3/uL (140-450) Mean Platelet Volume 7.5 fL (6.9-10.8) Neutrophils (%) (Auto) 53.9 % (37.0-80.0) Lymphocytes (%) (Auto) 33.7 % (10.0-50.0) Monocytes (%) (Auto) 9.8 % (0.0-12.0) Eosinophils (%) (Auto) 1.8 % (0.0-7.0) Basophils (%) (Auto) 0.8 % (0.0-2.0) Neutrophils # (Auto) 3.2 10 ^3/uL (1.6-8.6) Lymphocytes # (Auto) 2.0 10 ^3/uL (0.4-5.4) Monocytes # (Auto) 0.6 10 ^3/uL (0-1.3) Eosinophils # (Auto) 0.1 10 ^3/uL (0-0.8) Basophils # (Auto) 0 10 ^3/uL (0-0.2) Nucleated Red Blood Cells 0.0 % Sodium Level 137 mmol/L (136-145) Potassium Level 3.7 mmol/L (3.5-5.1) Chloride Level 103 mmol/L (98-107) Carbon Dioxide Level 25 mmol/L (20-31) Anion Gap 9 (5-15) Blood Urea Nitrogen 10 mg/dL (9-23) Creatinine 0.64 mg/dL (0.550-1.02) Glomerular Filtration Rate Calc 102 mL/min (>90) BUN/Creatinine Ratio 15.6 (10.0-20.0) Serum Glucose 197 mg/dL (74-106) Calcium Level 9.1 mg/dL (8.7-10.4) Total Bilirubin 0.6 mg/dL (0.2-1.0) Aspartate Amino Transferase (AST) 14 U/L (13-40) Alanine Aminotransferase (ALT) 18 U/L (7-40) Alkaline Phosphatase 92 U/L (46-116) Total Protein 6.6 g/dL (5.7-8.2) Albumin 3.8 g/dL (3.2-4.8) Platelet Estimate Adequate Large Platelets Few Urine Color Light-yellow (Yellow) Urine Clarity Clear (Clear) Urine pH 5.5 (5.0-9.0) Urine Specific [place] 1.015 (1.001-1.035) Urine Protein Negative (Negative) Urine Ketones 2+ (Negative) Urine Blood Negative /uL (Negative) Urine Nitrite Negative (Negative) Urine Bilirubin Negative (Negative) Urine Urobilinogen Normal mg/dL (Negative) Urine Leukocyte Esterase Negative /uL (Negative) Urine RBC 1 /hpf (0 - 4) Urine Microscopic WBC 1 /HPF (0-5) Urine Squamous Epithelial Cells Few /hpf (<5) Urine Bacteria None seen /hpf (None Seen) Urine Mucus Few (None Seen) Urine Glucose 4+ mg/dL (Normal) Urine Opiates Screen Neg (NEGATIVE) Urine Fentanyl Screen Neg (NEGATIVE) Urine Barbiturates Screen Neg (NEGATIVE) Urine Phencyclidine Screen Neg (NEGATIVE) Urine Amphetamines Screen Neg (NEGATIVE) Urine Benzodiazepines Screen Neg (NEGATIVE) Urine Cocaine Screen Neg (NEGATIVE) Urine Cannabinoids Screen Pos (NEGATIVE) Test 02/11/25 02:54 02/09/25 13:17 02/09/25 10:25 Magnesium Level 2.0 mg/dL (1.6-2.6) Thyroid Stimulating Hormone (TSH) 2.45 uIU/mL (0.55-4.78) Troponin I High Sensitivity 9 ng/L (</=34) Hemoglobin A1c 13.7 % A1C (<5.7) Triglycerides Level 96 mg/dL (< 150) Cholesterol Level 237 mg/dL (< 200) LDL Cholesterol 157 mg/dL (< 100) HDL Cholesterol 65 mg/dL (40-59) Other Laboratory Tests 02/14/25 03:12 Brief Hx & Hospital Course: 89-year-old female with a known history of hypertension, chronic tobacco use disorder chronic alcoholism, chronic marijuana use previous history of cocaine use presented to the hospital with slurred speech and right-sided weakness found to have acute CVA with a left temporal occipital infarct. Patient also has a dysarthria status speech. Patient also has hypertensive urgency requiring nicardipine drip. Patient was started on aspirin statin neurology was consulted. Patient underwent 2D echo with a bubble study. Nando has been canceled as patient is currently tolerated the procedure. Patient is cleared by Neurology as well as Cardiology to be discharged. Initially home health home safety evaluation and home PT was brought to be arranged but patient's insurance will not cover anything. Patient's will be discharged home with close follow up as an outpatient with the PCP. Aspirin, statin, Plavix only for 21 days. Other hypertensive medication as prescribed. Tobacco cessation counseling marijuana cessation counseling and alcohol abstinence was recommended. Condition at Discharge: Stable Final Diagnosis/Problems List 89-year-old female with a known history of hypertension, chronic tobacco use disorder chronic alcoholism, chronic marijuana use previous history of cocaine use presented to the hospital with slurred speech and right-sided weakness found to have 1. 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 Dysarthria and slurred speech resolved 3. Hypertensive urgency , improved 4. Chronic tobacco use disorder 5. Chronic alcoholism 6. Chronic marijuana use Discharge Disposition: Home SNF Discharge Will this Physician continue t: No Discharge Instruct/Medications Diet: Cardiac 2g Na,low cholest Activity: No Restrictions, As Tolerated Follow Up/Referral: Follow up with the PCP in one week Follow up with the Neurology Dr. Marmolejo in 1-2 weeks Follow up with the Cardiology for outpatient NANDO if indicated. Medications: Aspirin, Plavix for 21 days, statin, losartan, beta nathen Discharge Statement: "Patient was advised to return to the ER or call 911 if any headaches, dizziness, shortness of breath, chest pain, abdominal pain, bleeding, fevers, or worsening of medical condition. Patient was counseled about treatment plan, medications, possible side effects, patientverbalized understanding. All questions were answered to the best of my ability. This discharge took greater then 30 minutes in planning, reviewing documentation, counseling the patient, and discussing with other team members." ASSESSMENT ASSESSMENT Assessment 89-year-old female with a known history of hypertension, chronic tobacco use disorder chronic alcoholism, chronic marijuana use previous history of cocaine use presented to the hospital with slurred speech and right-sided weakness found to have 1. 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 Dysarthria and slurred speech resolved 3. Hypertensive urgency , improved 4. Chronic tobacco use disorder 5. Chronic alcoholism 6. Chronic marijuana use Date of Service: Feb 14, 2025 Billing Provider: KENNY GODINEZ MD Common Visit Codes: 02711-KFV/OBS DISCH DAY >30min KENNY GODINEZ MD Feb 14, 2025 15:52
--- NOTE | 2025-02-14 16:05 | DVHPN2 ---
Progress Note - Dictate Date Seen: Feb 14, 2025 Medical Necessity Reason Pt with a Central, PICC or Fol: No Subjective Patient was seen and evaluated in follow up in the ICU. Patient has some global aphasia. CBC and chemistry are unremarkable. Patient is being arranged for discharge. vital signs Vital Sign Date Time Temp Pulse Resp B/P (MAP) Pulse Ox O2 Delivery O2 Flow Rate FiO2 02/14/25 12:00 94 02/14/25 12:00 15 99 Room Air* 0 21 02/14/25 11:00 162/87 (112) 02/14/25 04:00 98.6 98.6 Total Intake and Output 02/13/25 02/13/25 02/14/25 15:00 23:00 07:00 Intake Total 380 ml 250 ml Output Total 550 ml 500 ml Balance -170 ml -250 ml medications Current Medications Medications Dose Ordered Sig/Mai Route Start Time Stop Time Status Last Admin Dose Admin Carvedilol 6.25 mg Q12HR PO 02/09/25 22:00 02/14/25 09:09 6.25 MG Acetaminophen 325 mg Q6HP PRN PO 02/09/25 14:30 Atorvastatin Calcium 40 mg HS PO 02/09/25 22:00 02/13/25 21:50 40 MG Aspirin 81 mg DAILY PO 02/10/25 10:00 02/14/25 09:08 81 MG Nitroglycerin 0.4 mg Q5MINP PRN SL 02/09/25 14:30 Morphine Sulfate 2 mg Q30M PRN IV 02/09/25 14:45 Diagnostic Test (Pha) 1 strip Q6HR 02/09/25 18:00 02/14/25 11:56 1 STRIP Insulin Human Regular Q6HR SC 02/09/25 18:00 02/14/25 11:58 6 UNITS Dextrose 50 ml UD PRN IV 02/09/25 14:30 Ondansetron HCl 4 mg Q4HPRN PRN IV 02/09/25 20:15 02/10/25 03:04 4 MG Nicardipine HCl 50 mg/Sodium Chloride 250 ml @ 25 mls/hr Q10H IV 02/10/25 11:00 02/11/25 23:33 50 MLS/HR Hydralazine HCl 10 mg Q4HP PRN IV 02/10/25 13:00 02/14/25 06:43 10 MG Lorazepam 1 mg ONCE PRN IV 02/10/25 20:00 Losartan Potassium 50 mg DAILY PO 02/13/25 17:30 02/14/25 09:10 50 MG objective GENERAL: Alert and oriented x 3. No acute distress. Obese. EYES: PERRL, EOMI. Anicteric. HENT: Moist mucous membranes. LUNGS: Clear to auscultation bilaterally. CARDIOVASCULAR: Regular rate and rhythm. ABDOMEN: Soft, nontender and nondistended. EXTREMITIES: No edema. SKIN: Warm, dry. laboratory and microbiology Laboratory Tests 02/14/25 03:12 Test 02/14/25 03:12 Range/Units Serum Glucose 197 H 74-106 mg/dL Problem List Acute CVA, rule out cardiac etiology. Rule out cardiac arrhythmias. Rule out structural heart disease. Hypertensive emergency. Dyslipidemia, newly diagnosed. Type 2 diabetes mellitus, uncontrolled (Hgb A1c 13.7%), newly diagnosed. Hypokalemia. Hypomagnesemia, resolved. Tobacco use. Morbid obesity. Assessment/Plan Continued all current supportive medical care. Aspirin, Lipitor. Coreg, Losartan. IV Hydralazine for SBP >160. Morphine for pain. Nicardipine drip. Nitro SL. Additional plan as per the hospital course. Critical care time of 45 minutes provided to include time spent evaluation of patient at bedside, when appropriate patient/family education for diagnosis, treatment plan, review of pertinent medical information and discussion of care with specialty providers and PCP. Dietary Evaluation Review Recommendations by RD: Dietary education by RD Comments: 1) If patient remains NPO > 7 days, consider EN/TPN to meet at least 75% of estimated daily needs 2) Advance to 60g CCHO 2g Na diet when medically feasible, pending ST approval 3) Refer to outpatient RD/CDCES for diabetes education and weight management 4) Educate on the importance of SMBG. Consider continuous glucose monitor if patient d/c with insulin regimen 5) Follow-up with neurology and cardiology 6) Follow-up with physical therapy Expected Outcomes/Goals: 1) patient to receive nutrition support within 7 days of NPO status 2) labs to improve 3) diet to advance 4) f/u in 2-3 days Plan discussed with: Patient HARDIK BURGESS MD Feb 14, 2025 13:10
--- NOTE | 2025-02-18 23:21 | DVHSR ---
APPROVED REPORT EXAM: Two-dimensional and M-mode echocardiogram with Doppler, color Doppler and Bubble Study. RISK FACTORS Height: 5'11", Weight: 264 Other Information Quality : Technically LimitedRhythm : Technically limited study due to body habitus. Conclusion VERY LIMTED VIEWS DUE TO TECHNICALLY DIFFICULT STUDY LV EF IS 65% NORMAL MV AND TV NO EFFUSION
== END 2025-02-14 17:22 | disposition home or self-care (01) | DRG 45 ==
LOC: ER 09:49 → OVERFLOW 14:29 → ICU WEST 02-10 10:45
PROVIDERS: ADMIT Internal Medicine; ATTEND Internal Medicine
PROC: 05HF33Z Insertion of Infusion Device into Left Cephalic Vein, Percutaneous Approach (ICD-10-PCS; 2025-02-10)
PROC: B54NZZA Ultrasonography of Left Upper Extremity Veins, Guidance (ICD-10-PCS; 2025-02-10)
PROC: B24BZZ4 Ultrasonography of Heart with Aorta, Transesophageal (ICD-10-PCS; principal; 2025-02-12)
DX: I63.9 Cerebral infarction, unspecified (principal); I67.4 Hypertensive encephalopathy; R47.01 Aphasia; G81.91 Hemiplegia, unspecified affecting right dominant side; I16.1 Hypertensive emergency; E66.01 Morbid (severe) obesity due to excess calories; E83.42 Hypomagnesemia; E87.6 Hypokalemia; F17.210 Nicotine dependence, cigarettes, uncomplicated; F12.10 Cannabis abuse, uncomplicated; F14.10 Cocaine abuse, uncomplicated; E11.65 Type 2 diabetes mellitus with hyperglycemia; F10.10 Alcohol abuse, uncomplicated; K21.9 Gastro-esophageal reflux disease without esophagitis; Y90.9 Presence of alcohol in blood, level not specified; E78.5 Hyperlipidemia, unspecified; R47.1 Dysarthria and anarthria; Z83.3 Family history of diabetes mellitus; Z82.0 Family history of epilepsy and other diseases of the nervous system; Z82.49 Family history of ischemic heart disease and other diseases of the circulatory system; Z81.8 Family history of other mental and behavioral disorders; Z79.82 Long term (current) use of aspirin; Z79.899 Other long term (current) drug therapy; Z71.41 Alcohol abuse counseling and surveillance of alcoholic; Z71.51 Drug abuse counseling and surveillance of drug abuser; I25.2 Old myocardial infarction; Z68.36 Body mass index [BMI] 36.0-36.9, adult
CPT/HCPCS: 36415; 70450; 70496; 70498; 70551; 71045; 80048; 80053; 80061; 80307; 81001; 82962; 83036; 83735; 84443; 84484; 85025; 87081; 93005; 93306; 93312; 96374; 96375; 97116; 97163; 97530; 99291; G0378; J1815; J2250; J2405; J3480